=== PATIENT | female | born 1970 | race Caucasian/White ===

== ENCOUNTER 2020-01-16 09:12 | Outpatient (CLI) | payer OTHER, SELFPAY ==
[2020-01-16] MEDS: acetaminophen 500 mg Tablet 1000 MG PO (09:30)
[2020-01-16] MEDS: diphenhydrAMINE 50 mg/mL SDV 1mL 25 MG IVP (09:30)
== END 2020-01-16 09:13 | disposition home or self-care (01) ==
LOC: NSACUTE 09:13
PROVIDERS: Family Provider Internal Medicine; PCP Internal Medicine; Visit Provider Specialist
DX: G35 Multiple sclerosis (principal)
CPT/HCPCS: 36415; 96374; 96375; 96413; 96415; 99213; J1200; J2350; J2930; J7040

== ENCOUNTER 2020-04-24 08:27 | Outpatient (CLI) | payer OTHER, SELFPAY ==
--- NOTE | 2020-04-24 08:45 | US_ITS ---
WS: [id number] ULTRASOUND RENAL TECHNIQUE: Ultrasound examination of both kidneys. CLINICAL INFORMATION: Incontinence COMPARISON: Ultrasound June 05, 2015 FINDINGS: Technically difficult examination due to body habitus. RIGHT: Small simple cyst right upper pole measuring 1.1 x 0.8 x 0.8 cm Right kidney is normal in size and appearance. Echogenicity: Normal. Cortical thickness: 1.2 cm; Normal. Hydronephrosis: None. Perinephric fluid: None. Right kidney measures: 8.5 cm x 3.9 cm x 3.9 cm. LEFT: Left kidney is normal in size and appearance. Echogenicity: Normal. Cortical thickness: 1.5 cm; Normal. Hydronephrosis: None. Perinephric fluid: None. Left kidney measures: 9.7 cm x 4.0 cm x 5.2 cm. Normal visualized aorta. Small pocket of fluid in the pelvis adjacent to the bladder wall. This measu res 3.3 x 2.0 x 3.3 cm US/US renal BI* [id number] IMPRESSION: 1. Mild bilateral renal cortical atrophy. 2. No hydronephrosis in either kidney. 3. Small right renal cyst described above. 4. Normal bladder. 5. Small pocket of simple fluid in the pelvis adjacent to the bladder wall michael suring 3.3 CM.
== END 2020-04-24 08:28 | disposition home or self-care (01) ==
LOC: US 08:31
PROVIDERS: PCP Internal Medicine; Visit Provider Urology
DX: N39.41 Urge incontinence (principal); N26.1 Atrophy of kidney (terminal); N28.1 Cyst of kidney, acquired; R33.9 Retention of urine, unspecified
CPT/HCPCS: 76770; 80053; 81001; 87077; 87086; 87186

== ENCOUNTER 2020-07-30 08:37 | Outpatient (CLI) | payer OTHER, SELFPAY ==
[2020-07-30] MEDS: diphenhydrAMINE 50 mg/mL SDV 1mL 25 MG IVP (09:45)
[2020-07-30] MEDS: acetaminophen 500 mg Tablet 1000 MG PO (10:05)
== END 2020-07-30 08:38 | disposition home or self-care (01) ==
LOC: NSACUTE 08:38
PROVIDERS: Family Provider Internal Medicine; PCP Internal Medicine; Visit Provider Specialist
DX: G35 Multiple sclerosis (principal)
CPT/HCPCS: 96365; 96375; 99213; J1200; J2350; J2930; J7040

== ENCOUNTER 2021-01-16 08:00 | Outpatient (CLI) | payer OTHER, SELFPAY ==
[2021-01-16] MEDS: acetaminophen 500 mg Tablet 1000 MG PO (08:48)
[2021-01-16] MEDS: diphenhydrAMINE 50 mg/mL SDV 1mL 12.5 MG IVP (08:55)
--- NOTE | 2021-01-16 10:33 | PC.NURSE ---
Medication information Solumedrol [id number] 08/09/22 Benadryl [id number] 02/07/22 Ocrevus [id number] 08/09/21
== END 2021-01-16 08:01 | disposition home or self-care (01) ==
LOC: NSACUTE 08:13
PROVIDERS: PCP Internal Medicine; Visit Provider Specialist
DX: G35 Multiple sclerosis (principal); M54.5 Low back pain
CPT/HCPCS: 96365; 96366; 96375; 99214; J1200; J2350; J2930; J7040

== ENCOUNTER 2021-01-23 10:31 | Outpatient (CLI) | payer OTHER, SELFPAY ==
--- NOTE | 2021-01-23 10:33 | MM_ITS ---
WS: [id number] BILATERAL DIGITAL SCREENING MAMMOGRAPHY WITH CAD CLINICAL INFORMATION: SCREENING HISTORY: Screening mammogram. No current complaints. COMPARISON: TECHNIQUE: Bilateral CC and MLO views. FINDINGS: Scattered fibroglandular densities bilaterally. Punctate and lucent centered calcifications. Eggshell calcifications. Clustered and punctate calcifications posterior depth right breast upper outer quadr ant increased from previous 2019 Recommend spot magnification views for further evaluation. Additional incidental benign lucent center ed and x-ray calcifications right breast. Left breast is unchanged and unremarkable. MM/[place] [id number] IMPRESSION: BI-RADS: 0-Incomplete: Need additional imaging evaluation FOLLOW UP: Need Additional Imaging Recommend spot magnification views of the increasing calcifications posterior d epth right breast.
== END 2021-01-23 10:32 | disposition home or self-care (01) ==
LOC: RADSHAW 10:31
PROVIDERS: PCP Internal Medicine; Visit Provider Internal Medicine
DX: Z12.31 Encounter for screening mammogram for malignant neoplasm of breast (principal); R92.1 Mammographic calcification found on diagnostic imaging of breast
CPT/HCPCS: 77067

== ENCOUNTER 2021-01-25 10:25 | Outpatient (RCR) | payer OTHER, SELFPAY | END 2021-02-06 23:59 | disposition home or self-care (01) | LOC: SPT 10:25 | PROVIDERS: PCP Internal Medicine; Referring Provider Specialist; Visit Provider Specialist | DX: R26.81 Unsteadiness on feet (principal); G35 Multiple sclerosis | CPT/HCPCS: 87635; 97110; 97112; 97162 ==

== ENCOUNTER 2021-01-30 06:45 | Day surgery (SDC) | payer OTHER, SELFPAY ==
[2021-01-28 12:40] VITALS: BMI 32.5
--- NOTE | 2021-01-30 06:52 | ANES.PREANE2 ---
Pre-Anesthetic Assessment Pre-Anesthetic Assessment: Height/Weight: Height 1.63 m Weight 86.183 kg Preop Diagnosis: Screening colonoscopy Proposed Procedure: Operation Date: 01/30/21 08:00 Proposed Procedures p Colonoscopy 62348 Z12.11(Not Applicable) - Christofer Gimenez MD Familial anesthetic complications: None Was Beta Va taken within 24 hours: N/A Was Clonidine taken within 24 hours: N/A Last intake: NPO>8 hrs Social: Social History: No alcohol and No tobacco Exam: Pre-Anes Outpt Exam: alert, oriented x 3, clear to auscultation bilaterally and regular rate & rhythm Airway: Cervical ROM: WNL MP: 2 Dentition: Full CV/HEM: CV/HEM: HTN Musc/skel: Comments: multiple sclerosis Neuropsych: Neuropsych: Seizure (2018) Anesthetic Plan: ASA status: 3 Anesthesia: MAC Risk of > 500 ml blood loss (7ml/kg in children): No PFSH Anesthesia PFSH: Medical History Cystitis Hypertension Multiple sclerosis Urgency incontinence Family History Other Hypertension Denies family history of Diabetes Cancer Stroke Social History Smoking and tobacco status: never smoked Alcohol intake: current Alcohol intake frequency: 0-2 Drinks per Day Adopted: No Caregiver/support person: No Lives independently: No Household members: spouse Marital status: Current occupational status: employed History of recent travel: No Data Anesthesia Cardiac Studies: No Data to Display
[2021-01-30 07:34] VITALS: BP 96/61; PULSE 73; RESP 16; TEMP 36.3; O2SAT 98
--- NOTE | 2021-01-30 07:54 | W.PM.OPSUD ---
Surgery/Procedure H&P Update DATE OF PROCEDURE: January 30, 2021 DATE H&P PERFORMED: 01/07/21 H&P UPDATE INFORMATION: I have reviewed H&P completed within last 30 days, I have examined patient prior to procedure and No changes to prior documentation PREOP DIAGNOSIS: Screening colonoscopy PRIMARY INDICATION FOR PROCEDURE: The same PLANNED PROCEDURE: Operation Date: 01/30/21 08:00 Proposed Procedures p Colonoscopy 37456 Z12.11(Not Applicable) - Christofer Gimenez MD
[2021-01-30] MEDS: sodium chloride 0.9% 1,000 ML 30 ML IV (07:58)
[2021-01-30 08:58] VITALS: BP 73/38; PULSE 77; RESP 16; TEMP 36.1; O2SAT 98
[2021-01-30 09:20] VITALS: BP 93/56; PULSE 78; RESP 16; O2SAT 99
--- NOTE | 2021-01-30 09:33 | ANE.PACU2 ---
Inpatient post-anesthesia follow up: Airway intact: Yes Vital signs: Temperature 97 F Pulse Rate 78 Respiratory Rate 16 Blood Pressure 93/56 Pulse Oximetry 99 Oxygen Delivery Me thod Room Air Oxygen Flow Rate Fraction of Inspir ed Oxygen Hydration adequate: Yes Nausea and vomiting: No Mental status: Baseline
== END 2021-01-30 10:46 | disposition home or self-care (01) ==
PROVIDERS: PCP Internal Medicine; Visit Provider Surgery
PROC: 0DJD8ZZ Inspection of Lower Intestinal Tract, Via Natural or Artificial Opening Endoscopic (ICD-10-PCS; CPT 45378; principal; 2021-01-30 08:00)
DX: Z12.11 Encounter for screening for malignant neoplasm of colon (principal); I10 Essential (primary) hypertension; G35 Multiple sclerosis
CPT/HCPCS: 45378; 96360; J2704; J3490; J7030

== ENCOUNTER → 2021-02-04 08:36 | Outpatient (BNVA) | payer OTHER, SELFPAY | PROVIDERS: PCP Internal Medicine; Referring Provider Specialist; Visit Provider Anesthesiology Pain Medicine | DX: G89.29 Other chronic pain (principal); M54.5 Low back pain; Z78.9 Other specified health status; Z79.899 Other long term (current) drug therapy | CPT/HCPCS: 99205 ==

== ENCOUNTER 2021-02-05 07:53 | Outpatient (CLI) | payer OTHER, SELFPAY ==
--- NOTE | 2021-02-05 07:56 | MR_ITS ---
WS: [id number] MRI BRAIN WITH AND WITHOUT CONTRAST HISTORY: G35 - Multiple sclerosis COMPARISON: 07/15/2018 TECHNIQUE: Multiplanar imaging performed through the brain with MultiHance 19 ml's IV. No acute infarcts or hemorrhage. Multifocal areas of T2 mixed signal white matter lesions again seen at the vertex and extending around the ventricles and into the cerebellum in the distribution consist ent with multiple sclerosis. As compared to the most recent study there has not been a significant pr ogression of lesions. On the T1 sequences there are numerous areas of marked decreased signal from lo ng-standing demyelination. No ventriculomegaly. No susceptibility artifacts or prior lacunar infarcts. Ventricles and extra-axial spaces are normal. Clivus and pituitary gland are normal. Postcontrast images are negative for masses or vascular malformations. No enhancement of the demyelin ating lesions. Dural venous sinuses are normal. Paranasal sinuses: Well aerated with no significant disease. Mastoid air cells: Normal. Calvarium and scalp: Normal. MR/MR head wo/w con [id number] IMPRESSION: 1. Moderately severe changes of chronic demyelinating disease is stable since 07/15/2018. 2. No enhancing active demyelination.
--- NOTE | 2021-02-05 07:56 | MR_ITS ---
WS: [id number] MRI CERVICAL SPINE with and without contrast. HISTORY: G35 - Multiple sclerosis COMPARISON: None available. Technique: Multiplanar, multisequence noncontrast imaging of the cervical spine with and without cont rast. Mild straightening of the normal cervical lordosis. No cord atrophy or enlargement. No focal areas of decreased signal. Mild disc space narrowing and desiccation at C5-6. Posterior fossa is negative. Craniocervical junction, C1 and C2 relationship, odontoid process and soft tissues are normal. C2-C3: Minimal osteophytic ridging. No stenosis. C3-C4: Normal. C4-C5: Normal. C5-C6: Mild annular disc bulging and osteophytic ridging. Focal central to LEFT paracentral disc prot rusion with annular fissure has slightly increased since the prior study. No high-grade stenosis. C6-C7: Normal. C7-T1: Normal. On the T2 and STIR sequences multi focal areas of increased signal throughout the cervical cord begin aimee at the C2 level into the upper thoracic spine. Probably no significant progression of the white matter lesions. On the postcontrast sequence there is very minimal smudginess increased enhancement a t the C6-7 level extending over length of 1 cm. Consistent with an area of active demyelination. MR/MR cervical spine wo/w [id number] IMPRESSION: 1. No significant progression of demyelinating lesions which are multi focal t hroughout the cervical and upper thoracic cord. 2. Subtle enhancement in the cervical cord at the C5-6 level suggest active de myelination. 3. Mild increase in size of focal central to LEFT paracentral disc protrusion at C5-6 without cord compression.
== END 2021-02-05 07:54 | disposition home or self-care (01) ==
LOC: RADSHAW 07:55
PROVIDERS: PCP Internal Medicine; Visit Provider Specialist
DX: G35 Multiple sclerosis (principal); M50.222 Other cervical disc displacement at C5-C6 level
CPT/HCPCS: 70553; 72156

== ENCOUNTER 2021-02-07 06:00 | Outpatient (RCR) | payer OTHER, SELFPAY | END 2021-03-07 14:24 | disposition home or self-care (01) | LOC: SPT 06:00 | PROVIDERS: PCP Internal Medicine; Referring Provider Specialist; Visit Provider Specialist | DX: R26.81 Unsteadiness on feet (principal); G35 Multiple sclerosis | CPT/HCPCS: 97110; 97112 ==

== ENCOUNTER 2021-02-15 09:17 | Outpatient (CLI) | payer OTHER, SELFPAY ==
--- NOTE | 2021-02-15 09:22 | MM_ITS ---
WS: [id number] ADDITIONAL VIEWS RIGHT BREAST HISTORY: ABNORMAL MAMMOGRAM COMPARISON: 01/23/2021 and 12/07/2018 Magnification views right CC and MLO projection. True ML also submitted. Magnification views of the calcifications in the posterior superior RIGHT breast are very benign in a ppearance. These are coarse and round. Some of these may be vascular calcifications. As these are new 6 month follow-up will be recommended. MM/[place] [id number] IMPRESSION: BI-RADS: 3-Probably Benign FOLLOW-UP: 6 Month Follow-up 6 month follow-up of benign-appearing calcifications in the posterior superior RIGHT breast.
== END 2021-02-15 09:18 | disposition home or self-care (01) ==
LOC: RADSHAW 09:18
PROVIDERS: PCP Internal Medicine; Visit Provider Nurse Practitioner Family
DX: R92.8 Other abnormal and inconclusive findings on diagnostic imaging of breast (principal); R92.1 Mammographic calcification found on diagnostic imaging of breast
CPT/HCPCS: 77065

== ENCOUNTER 2021-07-08 08:34 | Outpatient (CLI) | payer OTHER, SELFPAY ==
[2021-07-08] MEDS: acetaminophen 500 mg Tablet 1000 MG PO (08:54)
[2021-07-08] MEDS: diphenhydrAMINE 50 mg/mL SDV 1mL 25 MG IVP (10:20)
== END 2021-07-08 08:35 | disposition home or self-care (01) ==
LOC: NSACUTE 08:35
PROVIDERS: PCP Internal Medicine; Visit Provider Specialist
DX: G35 Multiple sclerosis (principal)
CPT/HCPCS: 96365; 96366; 96375; 99214; J1200; J2350; J2930; J7040

== ENCOUNTER → 2021-07-23 13:20 | Outpatient (BNVA) | payer OTHER, SELFPAY | PROVIDERS: PCP Internal Medicine; Visit Provider Anesthesiology Pain Medicine | DX: M47.816 Spondylosis without myelopathy or radiculopathy, lumbar region (principal) | CPT/HCPCS: 64635; 64636; J1030 ==

== ENCOUNTER → 2021-08-06 08:59 | Outpatient (BNVA) | payer OTHER, SELFPAY | PROVIDERS: PCP Internal Medicine; Visit Provider Anesthesiology Pain Medicine | DX: M47.816 Spondylosis without myelopathy or radiculopathy, lumbar region (principal); M51.16 Intervertebral disc disorders with radiculopathy, lumbar region; Z78.9 Other specified health status | CPT/HCPCS: 99213 ==

== ENCOUNTER → 2021-08-13 14:12 | Outpatient (BNVA) | payer OTHER, SELFPAY | PROVIDERS: PCP Internal Medicine; Visit Provider Anesthesiology Pain Medicine | DX: M47.816 Spondylosis without myelopathy or radiculopathy, lumbar region (principal) | CPT/HCPCS: 64635; 64636; J1030 ==

== ENCOUNTER → 2021-08-27 09:50 | Outpatient (BNVA) | payer OTHER, SELFPAY | PROVIDERS: PCP Internal Medicine; Visit Provider Anesthesiology Pain Medicine | DX: M47.816 Spondylosis without myelopathy or radiculopathy, lumbar region (principal); M51.16 Intervertebral disc disorders with radiculopathy, lumbar region; Z78.9 Other specified health status | CPT/HCPCS: 99213; 99214 ==

== ENCOUNTER → 2021-09-23 09:55 | Outpatient (BNVA) | payer OTHER, SELFPAY | PROVIDERS: PCP Internal Medicine; Visit Provider Anesthesiology Pain Medicine | DX: M47.816 Spondylosis without myelopathy or radiculopathy, lumbar region (principal); M51.16 Intervertebral disc disorders with radiculopathy, lumbar region; Z78.9 Other specified health status | CPT/HCPCS: 99214 ==

== ENCOUNTER 2021-09-23 10:27 | Outpatient (CLI) | payer OTHER, SELFPAY ==
--- NOTE | 2021-09-23 10:29 | XR_ITS ---
WS: [id number] Exam: XR thoracic spine 3V* [id number] Date/Time of Exam: 09/23/2021 10:30 AM Reason For Exam: M54.6 - Pain in thoracic spine Comparison 01/28/2012. Findings: In the AP projection, the thoracic spine is straight. In the lateral projection, the thoracic curve is well maintained. The intervertebral disc spaces are intact. No fractures or anomalies of the tho racic spine are noted. XR/XR thoracic spine 3V* [id number] IMPRESSION: Negative thoracic spine.
== END 2021-09-23 10:28 | disposition home or self-care (01) ==
PROVIDERS: PCP Internal Medicine; Visit Provider Anesthesiology Pain Medicine
DX: M54.6 Pain in thoracic spine (principal)
CPT/HCPCS: 72072

== ENCOUNTER 2021-09-26 13:37 | Outpatient (CLI) | payer OTHER, SELFPAY ==
--- NOTE | 2021-09-26 13:43 | MM_ITS ---
WS: [id number] RIGHT DIGITAL MAMMOGRAPHY WITH CAD CLINICAL INFORMATION: ABNORMAL MAMMOGRAM RIGHT BREAST HISTORY: Six-month follow-up COMPARISON: February 15, 2021 TECHNIQUE: 5 views of the right breast were obtained. FINDINGS: Scattered fibroglandular densities of the right breast. Lucent centered calcifications. Punctate calc ifications. Coarse calcifications in the posterior superior right breast are stable in appearance com pared to the prior examinations. These have a benign appearance and recommend return to annual screen ing mammography. No other significant changes. MM/[place] [id number] IMPRESSION: BI-RADS: 2-Benign FOLLOW UP: 1 Year Follow-up Recommend return to annual screening mammography.
== END 2021-09-26 13:38 | disposition home or self-care (01) ==
LOC: RADSHAW 13:40
PROVIDERS: PCP Internal Medicine; Visit Provider Internal Medicine
DX: R92.8 Other abnormal and inconclusive findings on diagnostic imaging of breast (principal)
CPT/HCPCS: 77065

== ENCOUNTER → 2021-10-21 10:55 | Outpatient (BNVA) | payer OTHER, SELFPAY | PROVIDERS: PCP Internal Medicine; Visit Provider Anesthesiology Pain Medicine | DX: M47.816 Spondylosis without myelopathy or radiculopathy, lumbar region (principal); M51.16 Intervertebral disc disorders with radiculopathy, lumbar region; Z78.9 Other specified health status | CPT/HCPCS: 99214 ==

== ENCOUNTER 2021-11-20 03:12 | Observation (INO) | payer OTHER, SELFPAY ==
[2021-11-20] VITALS (33 sets, daily range): BP systolic 55–138; BP diastolic 33–90; PULSE 14–111; RESP 8–95; TEMP 36.3–36.8; O2SAT 74–100; BMI 31.7
--- NOTE | 2021-11-20 03:15 | W.ED.FALL ---
HPI - Fall General: Chief Complaint: Fall Stated Complaint: Injury Fell Head Time Seen by Provider: 11/20/21 03:14 History of Present Illness: HPI Narrative: Ms. Mo is a 51-year-old lady with history of MS, chronic pain who presents to the emergency department due to fall and head injury. Injury happened just prior to coming in. She reports having a leg cramp and being in bed. She got up and felt lightheaded. She fell forward striking her face. No loss of consciousness and no subsequent episodes of nausea or vomiting. There is no apparent confusion. She does have a approximately 2 cm laceration with mild active oozing, no reported arterial bleeding. Overall the intensity of symptoms was moderate to severe. Denies frequent history of similar. Denies associated chest pain, shortness of breath, or any other changes in health. Reports normal p.o. intake. No other specific exacerbating or relieving factors identified. On initial presentation the patient is noted to be hypotensive, etiology unclear. MD complaint: fall Onset (ago): minute(s) Fall from: standing Place fall occurred: home Loss of consciousness: Unsure Prolonged down time: no Symptoms prior to fall: lightheadedness Context: history of frequent falls Location of injury: head Associated symptoms-after fall: Reports no associated symptoms Review of Systems General: Reports: 10 or more systems reviewed and unremarkable except in HPI and below PFSH ED PFSH: Medical History (Updated 11/22/21 @ 00:01 by ) Atrophic kidney Chronic kidney disease Cystitis Encounter for screening colonoscopy Normal colonoscopy Hypertension Migraine headache Mitral regurgitation Multiple sclerosis Urgency incontinence Family History Other Hypertension Denies family history of Diabetes Cancer Stroke Social History (Updated 11/20/21 @ 09:13 by Mauro Gage MD) Alcohol intake: current Alcohol intake frequency: 0-2 Drinks per Day Adopted: No Caregiver/support person: No Lives independently: No Household members: spouse Marital status: Current occupational status: disabled History of recent travel: No Physical Exam Const: COMMON NORMALS: alert GENERAL APPEARANCE: cooperative and well developed HENMT: COMMON NORMALS: normocephalic HEAD & SCALP: normocephalic and laceration (2 cm l eyebrow) THROAT: posterior oropharynx normal Eye: COMMON NORMALS: conjunctivae normal CONJUNCTIVA: Yes conjunctivae normal SCLERA: sclerae normal Neck/C-Spine: COMMON NORMALS: supple GENERAL: Yes trachea midline Resp: COMMON NORMALS: normal respiratory effort EFFORT & INSPECTION: Yes able to speak in complete sentences Cardio: COMMON NORMALS: regular rate and regular rhythm RATE: regular rate RHYTHM: regular rhythm GI: COMMON NORMALS: Soft to palpation PALPATION: Yes Soft to palpation and No Tenderness to palpation present (GI) PERCUSSION: normal to percussion Extremity: GENERAL: Yes normal exam except as noted and No edema Neuro: COMMON NORMALS: moves all extremities SENSORIUM/ORIENTATION: Yes alert and No Orientation impaired Psych: COMMON NORMALS: mental status grossly normal and Normal thought process present THOUGHT PROCESS: Normal thought process present Procedures Laceration Laceration 1: Site: face Side (If applicable): left Size (cm): 3 Description: linear Depth: simple, single layer Pre-repair: irrigated extensively (cleaned extensively) Skin layer closed with: other (dermabond) Course ED course: - Patient was seen and evaluated by me at bedside - Patient placed on cardiac monitors, IV access obtained - Initial evaluation notable for exam as above, patient is hypotensive though mentating adequately. -IV fluids ordered - Labs notable for no leukocytosis, hemoglobin is decreased though recent previous is 2019. Metabolic panel with evidence of increased creatinine, known history of CKD, mildly decreased bicarb and increased anion gap. - Imaging notable for negative acute findings on chest x-ray, cardiomegaly present. - Patient remained hypotensive despite fluid resuscitation without active evidence of clear cause. - Lowest blood pressure noted to be 53/33, mentation continued the patient markedly symptomatic with position changes. - Negative FAST exam. - No history of GI bleed/changes in stool or recent changes in medication, she has been taking her medication as prescribed and never had similar. Blood pressure medications including lisinopril and propranolol, patient is not significantly bradycardic enough to indicate beta-ernesto toxicity. - Given persistence additional CT imaging warranted. No acute evidence of traumatic injury or internal bleeding. - Upon serial reexamination after treatment the patient was mildly improved symptomatically the patient continues to be hypotensive. - Based on patient history, evaluation, labs, and imaging as interpreted the most likely cause of the patient's condition is unspecified cause of hypotension likely resulting in fall with closed head injury and laceration which was repaired with glue at bedside - The results of ED evaluation were discussed with the patient including plan for admission due to requirement for level of care not available if discharged to prevent significant worsening/deterioration. - Hospitalist service contacted and agreed admit the patient. - Patient was admitted without further deterioration or significant events. Blood pressure slowly improving at time of admission. Note: Click bubbles or prepopulated callahan in note writing are used for assistance with data collection and billing and are inherently more limited than narrative and other text portions of this note. Please use narrative for additional clinical history and defer to narrative/free test for any case of contradictory information. If information appears in only free text or click bubble it should be considered present or absent as reported. Please contact note lead technical writer for clarifications of clinical information or contradictory information. MDM is a brief summary, contradictory or erroneous seeming information should be clarified and full note should be reviewed. Vital Signs: Vital signs: Vital Signs Temperature 97.2 F L 11/21/21 11:49 Pulse Rate 82 11/21/21 11:49 Respiratory Rate 14 11/21/21 11:49 Blood Pressure 125/87 11/21/21 11:49 Pulse Oximetry 96 11/21/21 11:49 MDM - Fall MDM Narrative: Medical decision making narrative: 51-year-old lady with history of MS and hypertension presenting with head injury after fall. Fall was syncopal with position change in nature and patient is noted to be markedly hypotensive. She denies any recent history that would be consistent with reasons for hypotension. No poor p.o. intake, no increased output or vomiting, no changes in medications. Looking back she has had occasional mild low blood pressure however certainly nothing this profound. Would be atypical for medication toxicity/beta-ernesto toxicity as the patient is not bradycardic. Would also be atypical for acute traumatic mechanism as a source though in the absence of any other apparent explanation must resort back to ensuring ABCs and will perform CT scans. CT scans negative. Blood pressure slowly improving though patient remains hypotensive out of proportion to obvious explanation. Patient requires admission for further inpatient evaluation and testing as well as improvement in blood pressure. Medical Records: Attestation: I reviewed the patient's medical records. Lab Data: Attestation: I reviewed the patient's lab results. Labs: Lab Results 11/20/21 11/20/21 11/20/21 03:28 03:28 03:28 WBC 6.6 10^3/uL 10^3/ uL (4.0-10.0) RBC 3.71 10^6/uL L 10 ^6/uL (4.1-5.3) Hgb 10.5 g/dL L g/dL (11.5-15.3) Hct 33.0 % L % (37.0-47.0) MCV 88.9 fl fl (81-99) MCH 28.3 pg pg (28.0-34.0) MCHC 31.8 g/dL g/dL (30.0-36.0) RDW 12.6 % % (12.1-15.1) Plt Count 346 10^3/cmm 10^3 /cmm (130-400) MPV 11.2 fL H fL (7.4-10.4) Neut % (Auto) 65.7 % % Lymph % (Auto) 14.4 % % Esmeralda % (Auto) 12.6 % % Eos % (Auto) 5.9 % % Baso % (Auto) 1.1 % % Neut # (Auto) 4.35 10^3/uL 10^3 /uL (1.8-7.7) Lymph # (Auto) 1.0 10^3/uL 10^3/ uL (0.8-4.8) Esmeralda # (Auto) 0.8 10^3/uL 10^3/ uL (0.2-0.9) Eos # (Auto) 0.4 10^3/uL 10^3/ uL (0.0-0.8) Baso # (Auto) 0.1 10^3/uL 10^3/ uL (0.0-0.1) Nucleated RBC % (a uto) 0 % % Nucleated RBCs # 0.0 /100WBC /100W BC Sodium 136 mmol/L mmol/L (136-145) Potassium 3.7 mmol/L mmol/L (3.5-5.1) Chloride 101 mmol/L mmol/L (98-107) Carbon Dioxide 21 mmol/L L mmol/ L (22-29) Anion Gap 17.7 (5-19) BUN 33 mg/dL H mg/dL (6-20) Creatinine 1.8 mg/dL H mg/dL (0.5-0.9) GFR Calculation 29.8 mL/min L mL/ min (90-130) Glucose 130 mg/dL H mg/dL (65-115) Estimat Average Gl ucose Hemoglobin A1c Calculated Osmolal ity 291 mOsm/kg mOsm/ kg (285-295) Lactate 1.3 mmol/L mmol/L (0.5-2.2) Calcium 8.7 mg/dL mg/dL (8.5-10.5) Magnesium Iron TIBC % Saturation Unsat Iron Binding Ferritin Total Bilirubin 0.2 mg/dL mg/dL (0.15-1.2) AST 16 U/L U/L (0-32) ALT 16 U/L U/L (0-33) Alkaline Phosphata se 99 IU/L IU/L (35-105) Creatine Kinase Troponin T Baselin e Troponin T 120 Min [place] Troponin T Total Protein 5.8 g/dL L g/dL (6.6-8.7) Albumin 3.7 g/dL g/dL (3.5-5.2) Globulin 2.1 g/dL g/dL (1.3-4.6) Vitamin B12 Folate TSH 4.92 uIU/mL H uIU /mL (0.27-4.20) Free T4 Random Cortisol Urine Color Urine Appearance Urine pH Ur Specific Gravit y Urine Protein Urine Glucose (UA) Urine Ketones Urine Blood Urine Nitrate Urine Bilirubin Urine Urobilinogen Ur Leukocyte Fartun ase Urine RBC Urine WBC Ur Squamous Epith Cells Amorphous Sediment Urine Bacteria 11/20/21 11/20/21 11/20/21 03:28 03:28 03:28 WBC RBC Hgb Hct MCV MCH MCHC RDW Plt Count MPV Neut % (Auto) Lymph % (Auto) Esmeralda % (Auto) Eos % (Auto) Baso % (Auto) Neut # (Auto) Lymph # (Auto) Esmeralda # (Auto) Eos # (Auto) Baso # (Auto) Nucleated RBC % (a uto) Nucleated RBCs # Sodium Potassium Chloride Carbon Dioxide Anion Gap BUN Creatinine GFR Calculation Glucose Estimat Average Gl ucose 91 Hemoglobin A1c 4.8 % % (4.0-6.0) Calculated Osmolal ity Lactate Calcium Magnesium Iron TIBC % Saturation Unsat Iron Binding Ferritin Total Bilirubin AST ALT Alkaline Phosphata se Creatine Kinase Troponin T Baselin e 20 ng/L H ng/L (0-10) Troponin T 120 Min [place] Troponin T Total Protein Albumin Globulin Vitamin B12 Folate TSH Free T4 1.41 ng/dL ng/dL (0.82-1.77) Random Cortisol Urine Color Urine Appearance Urine pH Ur Specific Gravit y Urine Protein Urine Glucose (UA) Urine Ketones Urine Blood Urine Nitrate Urine Bilirubin Urine Urobilinogen Ur Leukocyte Fartun ase Urine RBC Urine WBC Ur Squamous Epith Cells Amorphous Sediment Urine Bacteria 11/20/21 11/20/21 11/20/21 03:28 03:28 03:28 WBC RBC Hgb Hct MCV MCH MCHC RDW Plt Count MPV Neut % (Auto) Lymph % (Auto) Esmeralda % (Auto) Eos % (Auto) Baso % (Auto) Neut # (Auto) Lymph # (Auto) Esmeralda # (Auto) Eos # (Auto) Baso # (Auto) Nucleated RBC % (a uto) Nucleated RBCs # Sodium Potassium Chloride Carbon Dioxide Anion Gap BUN Creatinine GFR Calculation Glucose Estimat Average Gl ucose Hemoglobin A1c Calculated Osmolal ity Lactate Calcium Magnesium 1.6 mg/dL L mg/dL (1.7-2.3) Iron 42 ug/dL ug/dL (37-145) TIBC 289 mcg/dl mcg/dl % Saturation 14.5 % L % (20-50) Unsat Iron Binding 247 ug/dL ug/dL (112-347) Ferritin 156 ng/mL H ng/mL (15-150) Total Bilirubin AST ALT Alkaline Phosphata se Creatine Kinase Troponin T Baselin e Troponin T 120 Min [place] Troponin T Total Protein Albumin Globulin Vitamin B12 279 pg/mL pg/mL (232-1245) Folate 4.9 ng/mL ng/mL (4.8-37.3) TSH Free T4 Random Cortisol 24.08 ug/dL H ug/ dL (2.47-19.5) Urine Color Urine Appearance Urine pH Ur Specific Gravit y Urine Protein Urine Glucose (UA) Urine Ketones Urine Blood Urine Nitrate Urine Bilirubin Urine Urobilinogen Ur Leukocyte Fartun ase Urine RBC Urine WBC Ur Squamous Epith Cells Amorphous Sediment Urine Bacteria 11/20/21 11/20/21 11/20/21 05:24 05:26 05:27 WBC RBC Hgb Hct MCV MCH MCHC RDW Plt Count MPV Neut % (Auto) Lymph % (Auto) Esmeralda % (Auto) Eos % (Auto) Baso % (Auto) Neut # (Auto) Lymph # (Auto) Esmeralda # (Auto) Eos # (Auto) Baso # (Auto) Nucleated RBC % (a uto) Nucleated RBCs # Sodium Potassium Chloride Carbon Dioxide Anion Gap BUN Creatinine GFR Calculation Glucose Estimat Average Gl ucose Hemoglobin A1c Calculated Osmolal ity Lactate Calcium Magnesium Iron TIBC % Saturation Unsat Iron Binding Ferritin Total Bilirubin AST ALT Alkaline Phosphata se Creatine Kinase 46 U/L U/L (26-192) Troponin T Baselin e Troponin T 120 Min [place] 16.57 ng/L H ng/L (0-10) Delta Troponin T -3.43 ABS# L ABS# (0-10) Total Protein Albumin Globulin Vitamin B12 Folate TSH Free T4 Random Cortisol Urine Color Yellow (Yellow) Urine Appearance Cloudy (CLEAR) Urine pH 5 (5-7) Ur Specific Gravit y 1.020 (1.005-1.030) Urine Protein Neg (Negative) Urine Glucose (UA) Norm (Normal) Urine Ketones 1+ H (Negative) Urine Blood Neg (Negative) Urine Nitrate Negative (Negative) Urine Bilirubin 1+ H (Negative) Urine Urobilinogen 1 mg/dL H mg/dL (Negative) Ur Leukocyte Fartun ase 2+ H (Negative) Urine RBC 0-4 /hpf H /hpf (0-2) Urine WBC 25-40 /hpf H /hpf (0-5) Ur Squamous Epith Cells 25-40 /hpf H /hpf (0-5) Amorphous Sediment Not Reportable Urine Bacteria 1+ /hpf H /hpf (NONE) Critical Care Time Critical Care Time: Critical Care Time: Yes Total Critical Care Time: 35 Attestation: Due to a high probability of clinically significant, possibly life threatening deterioration, the patient required my highest level of attention and preparedness to intervene emergently and I personally spent this critical care time directly and personally managing the patient. This critical care time included obtaining a history; examining the patient; pulse oximetry; ordering and review of laboratory and imaging studies; arranging urgent treatment with development of a management plan; evaluation of patient's response to treatment; frequent reassessment; and, discussions with other providers as applicable. It was exclusive of separately billable procedures. Discharge Plan Discharge Patient Disposition: Placed in Observation Admit Provider: Tanika Moncada Clinical Impression: Syncope, Hypotension Discharge Diet: Regular Discharge Activity: Increase activity as tolerated Coding Level of Care Code ED Commodities Requirements Analyst for Raymon Abarca
--- NOTE | 2021-11-20 03:27 | ECG_ITS ---
[facility] Test Date: 2021-11-20 Pat Name: Maribeth Mo Department: Room: Gender: Female Composite Layup Worker: : 1970 Requested By: Hi Cason Order Number: [id number] Uriah MD: Rudy Baker M.D. Measurements Intervals [place] Rate: 68 P: 32 NE: 135 QRS: 19 QRSD: 88 T: 17 QT: 382 QTc: 407 Interpretive Statements SINUS RHYTHM No previous ECG available for comparison Electronically Signed On 11-20-2021 20:07:46 COMPOSITE LAYUP WORKER by Rudy Baker M.D. [id number]
--- NOTE | 2021-11-20 03:31 | XRR_ITS ---
PROCEDURE INFORMATION: Exam: XR Chest Exam date and time: 11/20/2021 3:31 AM Age: 51 years old Clinical indication: Patient HX: Syncope. Hypotensive on monitor. TECHNIQUE: Imaging protocol: XR of the chest. Views: 1 view. COMPARISON: CR Chest 2 views* [id number] 06/01/2016 7:11 PM FINDINGS: Lungs: Shallow lung volumes. No consolidation. Pleural spaces: No pneumothorax or apparent pleural fluid. Heart/Mediastinum: Continued cardiomegaly. Vasculature: Continued aortic elongation. Bones/joints: No suggestion of acute bony disease. XR/XR chest 1V portable [id number] IMPRESSION: No acute findings. Continued cardiomegaly.
[2021-11-20 03:34] LABS: Basophils # 0.1 10^3/uL (0.0-0.1); Basophils % 1.1 %; Eosinophils # 0.4 10^3/uL (0.0-0.8); Eosinophils % 5.9 %; Hemoglobin 10.5 g/dL (11.5-15.3); Lymphocytes % 14.4 %; Mean Corpuscular HGB Conc 31.8 g/dL (30.0-36.0); Mean Corpuscular Hemoglobin 28.3 pg (28.0-34.0); Mean Corpuscular Volume 88.9 fl (81-99); Mean Platelet Volume 11.2 fL (7.4-10.4); Monocytes # 0.8 10^3/uL (0.2-0.9); Monocytes % 12.6 %; Neutrophils # 4.35 10^3/uL (1.8-7.7); Neutrophils % 65.7 %; Nucleated Red Blood Cells % 0 %; Platelet Count 346 10^3/cmm (130-400); Red Blood Count 3.71 10^6/uL (4.1-5.3); Red Cell Distribution Width 12.6 % (12.1-15.1); White Blood Count 6.6 10^3/uL (4.0-10.0)
[2021-11-20] MEDS: sodium chloride 0.9% 1,000 ML 999 ML IV ×2 (03:37→04:02)
[2021-11-20] MEDS: tetanus-dipt-pertussis 0.5 mL SDV IM (03:41)
[2021-11-20 04:01] LABS: Alanine Aminotransferase 16 U/L (0-33); Albumin Level 3.7 g/dL (3.5-5.2); Alkaline Phosphatase 99 IU/L (35-105); Anion Gap 17.7 (5-19); Aspartate Amino Transferase 16 U/L (0-32); Blood Urea Nitrogen 33 mg/dL (6-20); Calcium 8.7 mg/dL (8.5-10.5); Carbon Dioxide 21 mmol/L (22-29); Chloride 101 mmol/L (98-107); Globulin 2.1 g/dL (1.3-4.6); Glomerular Filtration Rate 29.8 mL/min (90-130); Glucose 130 mg/dL (65-115); Osmolality Calculated 291 mOsm/kg (285-295); Potassium 3.7 mmol/L (3.5-5.1); Sodium 136 mmol/L (136-145); Thyroid Stimulating Hormone 4.92 uIU/mL (0.27-4.20); Total Bilirubin 0.2 mg/dL (0.15-1.2); Total Protein 5.8 g/dL (6.6-8.7)
[2021-11-20] MEDS: hydrocortisone 100 mg/2 mL SDV IVP (04:09)
--- NOTE | 2021-11-20 04:26 | PC.NURSE ---
pt unable to urinate
[2021-11-20 04:38] LABS: Troponin(5th) Baseline 20 ng/L (0-10)
--- NOTE | 2021-11-20 04:38 | CTR_ITS ---
PROCEDURE INFORMATION: Exam: CT Cervical Spine Without Contrast Exam date and time: 11/20/2021 4:38 AM Age: 51 years old Clinical indication: Injury or trauma; Fall; Blunt trauma; Patient HX: Patient had syncopal episode this morning getting out of bed and fell and sustained blow to head. Small laceration to left eyebrow. ; Additional info: Syncope, fall, persistent hypotension TECHNIQUE: Imaging protocol: Computed tomography images of the cervical spine without contrast. Radiation optimization: All CT scans at this facility use at least one of these dose optimization techniques: automated exposure control; mA and/or kV adjustment per patient size (includes targeted exams where dose is matched to clinical indication); or iterative reconstruction. COMPARISON: MR cervical spine wo/w [id number] 02/05/2021 8:15 AM RADIATION DOSE METRICS: Total DLP (mGy-cm): 520.79 FINDINGS: Bones/joints: Still no fracture or malalignment. Discs/Spinal canal/Neural foramina: Current annular bulging rather than a left central focal disc protrusion at C5-C6. Still no significant canal stenosis. Lungs: Right lung apex mostly excluded, but unremarkable. Left lung apex not visualized Soft tissues: No acute finding. CT/CT cervical spin wo con* [id number] IMPRESSION: No fracture.
--- NOTE | 2021-11-20 04:38 | CTR_ITS ---
PROCEDURE INFORMATION: Exam: CT Head Without Contrast Exam date and time: 11/20/2021 4:38 AM Age: 51 years old Clinical indication: Injury or trauma; Fall; Blunt trauma (contusions or hematomas); Patient HX: Patient had syncopal episode this morning getting out of bed and fell and sustained blow to head. Small laceration to left eyebrow. ; Additional info: Syncope, fall, persistent hypotension TECHNIQUE: Imaging protocol: Computed tomography of the head without contrast. Radiation optimization: All CT scans at this facility use at least one of these dose optimization techniques: automated exposure control; mA and/or kV adjustment per patient size (includes targeted exams where dose is matched to clinical indication); or iterative reconstruction. COMPARISON: MR head wo/w con [id number] 02/05/2021 8:15 AM RADIATION DOSE METRICS: Total DLP (mGy-cm): 816.89 FINDINGS: Brain: Numerous foci of decreased density in the cerebral white matter bilaterally not associated with positive mass effect. Extensive patchy slightly decreased density also evident in the cerebral white matter. Old lacunar infarct or a perivascular space in the inferior left basal ganglia. No apparent edema in the brain. No intracranial hemorrhage. Cerebral ventricles: Continued slight ventriculomegaly. Paranasal sinuses: No air-fluid levels or significant mucosal thickening in the visualized paranasal sinuses. Mastoid air cells: Unremarkable mastoids. Bones/joints: No skull fracture. Soft tissues: No acute finding. CT/CT head wo con* [id number] IMPRESSION: No acute intracranial findings. Extensive chronic ischemic changes as on the prior MRI.
--- NOTE | 2021-11-20 04:38 | CTR_ITS ---
PROCEDURE INFORMATION: Exam: CTA Chest With Contrast Exam date and time: 11/20/2021 4:38 AM Age: 51 years old Clinical indication: Other: Hypotensive. ; Patient HX: Patient had syncopal episode with fall this morning. Patient has consistently been hypotensive 60s/40s on monitor after two liters of saline. Mildy decreased hemoglobin. ; Additional info: Syncope, fall, persistent hypotension TECHNIQUE: Imaging protocol: Computed tomographic angiography of the chest with contrast. 3D rendering (Not supervised by radiologist): MIP and/or 3D reconstructed images were created by the technologist. Total images: 1111 Radiation optimization: All CT scans at this facility use at least one of these dose optimization techniques: automated exposure control; mA and/or kV adjustment per patient size (includes targeted exams where dose is matched to clinical indication); or iterative reconstruction. Contrast material: VISI 320; Contrast volume: 95 ml; Contrast route: INTRAVENOUS (IV); COMPARISON: CR (CHEST, ) 11/20/2021 3:34 AM RADIATION DOSE METRICS: Total DLP (mGy-cm): 1377.06 FINDINGS: Pulmonary arteries: Pulmonary artery evaluation of good technical quality with no pulmonary artery embolism identified. Aorta: Unremarkable. No aortic aneurysm. No aortic dissection. Lungs: Unremarkable. No consolidation. No masses. Pleural spaces: Unremarkable. No pneumothorax. No pleural effusion. Heart: Unremarkable. No cardiomegaly. No pericardial effusion. Lymph nodes: Unremarkable. No enlarged lymph nodes. Bones/joints: Unremarkable. No acute fracture. Soft tissues: Unremarkable. PROCEDURE INFORMATION: Exam: CT Abdomen And Pelvis With Contrast Exam date and time: 11/20/2021 4:38 AM Age: 51 years old Clinical indication: Other: Hypotensive. ; Patient HX: Patient had syncopal episode with fall this morning. Patient has consistently been hypotensive 60s/40s on monitor after two liters of saline. Mildy decreased hemoglobin. ; Additional info: Syncope, fall, persistent hypotension TECHNIQUE: Imaging protocol: Computed tomography of the abdomen and pelvis with contrast. Radiation optimization: All CT scans at this facility use at least one of these dose optimization techniques: automated exposure control; mA and/or kV adjustment per patient size (includes targeted exams where dose is matched to clinical indication); or iterative reconstruction. Contrast material: VISI 320; Contrast volume: 95 ml; Contrast route: INTRAVENOUS (IV); COMPARISON: CR (CHEST, ) 11/20/2021 3:34 AM RADIATION DOSE METRICS: Total DLP (mGy-cm): 1377.06 FINDINGS: Liver: Normal. No mass. Gallbladder and bile ducts: The gallbladder is contracted but otherwise unremarkable. Pancreas: Normal. No ductal dilation. Spleen: Normal. No splenomegaly. Adrenal glands: Normal. No mass. Kidneys and ureters: Atrophic right kidney. Stomach and bowel: Colonic diverticulosis is present without diverticulitis. Appendix: No evidence of appendicitis. Intraperitoneal space: Unremarkable. No free air. No significant fluid collection. Vasculature: Incidental phleboliths noted. Lymph nodes: Unremarkable. No enlarged lymph nodes. Urinary bladder: Unremarkable as visualized. Reproductive: 3.5 cm simple appearing left ovarian cyst. No further workup needed. Bones/joints: Disc degeneration is most notable at L5/S1. Soft tissues: Unremarkable. CT/CT angio chest w abd pel w con IMPRESSION: 1. No pulmonary artery embolism identified. 2. No acute process identified. IMPRESSION: No acute findings.
[2021-11-20 04:39] LABS: Lactate (Lactic Acid level) 1.3 mmol/L (0.5-2.2)
[2021-11-20] MEDS: iodixanol 320 mg/mL 100mL Btl IV (04:54)
[2021-11-20 05:04] LABS: Free T4 Free Thyroxine 1.41 ng/dL (0.82-1.77)
[2021-11-20] MEDS: ondansetron 2 mg/ML SDV 2 mL 4 MG IVP (05:19)
[2021-11-20 05:38] LABS: Add Urine Microscopic? YES; Bacteria Urine 1+ /hpf; Bilirubin Urine 1+ (Negative); Blood Urine Neg (Negative); Glucose Urine UA Norm (Normal); Ketones Urine 1+ (Negative); Leukocyte Esterase Urine 2+ (Negative); Nitrate Urine Negative (Negative); Protein Urine Neg (Negative); RBC Urine 0-4 /hpf (0-2); Squamous Epithelial Cell Urine 25-40 /hpf (0-5); Urine Appearance Cloudy (CLEAR); Urine Color Yellow (Yellow); Urobilinogen Urine 1 mg/dL (Negative); WBC Urine 25-40 /hpf (0-5); pH Urine 5 (5-7)
[2021-11-20 05:56] LABS: Troponin 5 2HR 16.57 ng/L (0-10)
[2021-11-20 05:58] LABS: Troponin 5 2HR Delta -3.43 ABS# (0-10)
--- NOTE | 2021-11-20 06:09 | ECG_ITS ---
[facility] Test Date: 2021-11-20 Pat Name: Maribeth Mo Department: Room: Gender: Female Crate Tier: : 1970 Requested By: Hi Cason Order Number: [id number] Uriah MD: Rudy Baker M.D. Measurements Intervals [place] Rate: 73 P: 45 IN: 139 QRS: 44 QRSD: 90 T: 24 QT: 402 QTc: 443 Interpretive Statements SINUS RHYTHM LOW QRS VOLTAGE IN PRECORDIAL LEADS [QRS DEFLECTION < 1.0 mV IN CHEST LEADS] Compared to ECG 11/20/2021 03:32:07 Low QRS voltage now present Electronically Signed On 11-20-2021 20:07:50 CART ATTENDANT by Rudy Baker M.D. [id number]
--- NOTE | 2021-11-20 08:22 | USCV_ITS ---
Maribeth Mo Age: 51 Gender: F : 1970 Exam Date: 11/20/2021 10:41 Ordering Phys: Mauro Gage MD Technologist: DAVID [place] [facility] [place]: Syncope yesterday, fell and struck forehead. c/o hypotension. Has been taking blood pressure medication for years. No hx cardiac intervention BP: 96 / 55 HR: 75 Rhythm: Sinus Technical Quality: Adequate MEASUREMENTS (Male / Female) Normal Values 2D ECHO LV Diastolic Diameter PLAX 3.7 cm 4.2 - 5.9 / 3.9 - 5.3 cm LV Systolic Diameter PLAX 2.4 cm IVS Diastolic Thickness 1.1 cm 0.6 - 1.0 / 0.6 - 0.9 cm IVS Systolic Thickness 1.8 cm LVPW Diastolic Thickness 1.3 cm 0.6 - 1.0 / 0.6 - 0.9 cm LVPW Systolic Thickness 1.4 cm LVOT Diameter 1.8 cm LV Ejection Fraction 2D Teich 66.1 % LV Ejection Fraction MOD 2C 71.6 % LV Ejection Fraction 2C AL 73.8 % LA Diameter 3.6 cm LA Width 3.3 cm LA Height 5.2 cm RA Width 2.2 cm RA Height 3.9 cm Aorta at Sinotubular Diameter 2.5 cm M-MODE Aortic Annulus Diameter 2.7 cm LA Ao Ratio MM 1.5 MV E Point Septal Separation 0.4 cm DOPPLER AV Peak Velocity 115.0 cm/s LVOT Peak Velocity 78.0 cm/s AV Area Cont Eq vti 1.9 cm squared AV Area Cont Eq pk 1.8 cm squared MV Peak Velocity 130.0 cm/s MV Area PHT 3.2 cm squared Mitral E to A Ratio 0.7 MV E' Velocity 54.0 cm/s Mitral E to MV E' Ratio 8.8 Mitral E to LV E' Lateral Ratio 8.1 Mitral E to LV E' Septal Ratio 9.5 TR Peak Velocity 215.5 cm/s TR Peak Gradient 18.6 mmHg TV Peak E Velocity 68.0 cm/s Right Atrial Pressure 5.0 mmHg Pulmonary Artery Systolic Pressu 23.6 mmHg PV Peak Velocity 85.0 cm/s RV Acceleration Time 0.1 s RV Ejection Time 0.4 s RV AcT/ET 0.3 FINDINGS Left Ventricle Normal left ventricular cavity size. Normal left ventricular systolic function. No regional wall motion abnormalities. Left ventricular ejection fraction is estimated at 66 %. Grade I/IV diastolic dysfunction (abnormal relaxation filling pattern), normal to mildly elevated filling pressures. Right Ventricle The right ventricle is normal in size and function. RVSP could not be calculated due to incomplete tricuspid regurgitation velocity profile. Right Atrium The right atrium is normal in size. Left Atrium The left atrium is normal in size. Mitral Valve Moderately thickened mitral valve. No mitral valve stenosis. Mild-moderate mitral valve regurgitation. Aortic Valve Structurally normal aortic valve without significant sclerosis or stenosis. There is no aortic regurgitation. Tricuspid Valve Mild tricuspid valve regurgitation. Pulmonic Valve Structurally normal pulmonic valve without significant stenosis. There is no pulmonic regurgitation. Pericardium Normal pericardium without effusion. Aorta Normal ascending aorta dimension. CONCLUSIONS 1-Normal left ventricular cavity size. Normal left ventricular systolic function. No regional wall motion abnormalities. Left ventricular ejection fraction is estimated at 66 %. Grade I/IV diastolic dysfunction (abnormal relaxation filling pattern), normal to mildly elevated filling pressures. 2-Moderately thickened mitral valve. No mitral valve stenosis. Mild-moderate mitral valve regurgitation. 3-Structurally normal aortic valve without significant sclerosis or stenosis. There is no aortic regurgitation. 4-There is no pericardial effusion. 5-Right atrial pressure is around 5 mm of mercury. 6-When compared to the prior echocardiogram dated June 30, 2016 mitral valve regurgitation has slightly improved from severe to moderate category. Latricia Baltazar MD (Electronically Signed) Final Date: 20 November 2021 22:06 S
--- NOTE | 2021-11-20 08:35 | PM.HP ---
Providers/Chief Complaint Admitting Physician: Tanika Moncada MD Primary Care Provider: Irasema Dalton MD Chief Complaint: Injury Fell Head History of Present Illness Maribeth Mo is a 51 year old female who presented to the ER after falling yesterday. PMH is significant for multiple sclerosis. She got out of bed to walk off a leg cramp and subsequently fell. She is unsure if she lost consciousness, but her states that she was awake and conscious when he ran to check on her after hearing her fall. She states that for the past several months, she felt dizzy every time she got up and would have to take a few seconds to feel better before moving. Today she endorses feeling tired and weak. She denies any recent illness. Her MS symptoms typically include weakness and urinary frequency but she is still able to control her urine. She experiences almost daily headaches for which she takes propranolol but feels it is ineffective. She has received 2 doses of COVID vaccine and denies having COVID in the past. She has not had any fever, cough, vomiting, diarrhea. She reports she has had no significant decreased intake of fluids. She reports she did eat less last night, 1 bowl of macaroni. Review of Systems General: Reports: 10 or more systems reviewed and unremarkable except in HPI and below Const: Denies: fever(s) or chills Eyes: Denies: change in vision ENMT: Denies: throat pain Card: Denies: chest pain Resp: Denies: dyspnea GI: Denies: abdominal pain : Reports: urinary frequency Musc: Denies: neck pain Skin/Breast: Denies: rash Neuro: Reports: headache(s) Psych: Denies: anxiety Endo: Denies: polydipsia Ayad/Lymph: Denies: easy bruising All/Imm: Denies: urticaria Medications/Allergies Home Medications Medication Instructions Recorded Confirmed Last Taken Type aspirin 325 mg tablet 325 mg PO DAILY 01/16/20 10/21/21 Unknown History levocetirizine 5 mg tablet 5 mg PO DAILY 01/16/20 10/21/21 Unknown History lisinopril 10 mg tablet 10 mg PO DAILY 01/16/20 10/21/21 Unknown History propranolol 60 mg tablet 60 mg PO DAILY tab 01/16/20 10/21/21 Unknown History diclofenac potassium 50 mg tablet 50 mg PO Q8H tab 04/24/20 10/21/21 Unknown History tizanidine 4 mg capsule 4 mg PO TID PRN 01/16/21 10/21/21 Unknown History melatonin 10 mg PO DAILY 01/28/21 10/21/21 Unknown History ocrelizumab 30 mg/mL intravenous mg IV .Q 6 MONTHS ml 02/04/21 10/21/21 Unknown History solution eletriptan 20 mg tablet 20 mg PO Q2H PRN #9 tab 02/11/21 10/21/21 Unknown Rx oxybutynin chloride 10 mg 10 mg PO DAILY #30 tab 06/11/21 10/21/21 Unknown Rx tablet,extended release 24 hr triamcinolone acetonide 0.1 % 1 applic TOPICAL BID 7 Days #30 g 07/04/21 10/21/21 Unknown Rx topical cream DME: Walker #1 ea 07/10/21 10/21/21 Unknown Rx lorazepam 0.5 mg tablet 0.5 mg PO DAILY PRN #1 tab 08/06/21 10/21/21 Unknown Rx amoxicillin 875 mg-potassium 1 tab PO BID 7 Days #14 tab 10/08/21 10/21/21 Unknown Rx clavulanate 125 mg tablet ergocalciferol (vitamin D2) 1,250 See Rx Instructions .ROUTE 10/23/21 Unknown Rx mcg (50,000 unit) capsule .COMPLEX #8 cap Allergies Allergy/AdvReac Type Severity Reaction Status Date / Time latex Allergy RASH Verified 10/21/21 11:35 citalopram [From Celexa] AdvReac Mild TEETH Verified 10/21/21 11:35 GRITTING tramadol AdvReac SEIZURES Verified 10/21/21 11:35 PFSH Acute PFSH: Medical History (Updated 11/20/21 @ 09:18 by Mauro Gage MD) Atrophic kidney Chronic kidney disease Cystitis Encounter for screening colonoscopy Normal colonoscopy Hypertension Migraine headache Mitral regurgitation Multiple sclerosis Urgency incontinence Family History Other Hypertension Denies family history of Diabetes Cancer Stroke Social History (Updated 11/20/21 @ 09:13 by Mauro Gage MD) Alcohol intake: current Alcohol intake frequency: 0-2 Drinks per Day Adopted: No Caregiver/support person: No Lives independently: No Household members: spouse Marital status: Current occupational status: disabled History of recent travel: No Other [facility] information: Denies any significant surgical history Vitals/I&O/Wt Last Vital Signs Temp 97.6 F 11/20/21 03:27 Pulse 62 11/20/21 06:22 Resp 18 11/20/21 06:22 BP 88/60 11/20/21 06:22 Pulse Ox 97 11/20/21 06:22 11/19/21 11/20/21 11/20/21 22:59 06:59 14:59 Intake Total 549.45 / 549.45 Balance 549.45 / 549.45 Weight last 48 hrs Weight 83.915 kg Physical Exam Narrative: EXAM NARRATIVE: General exam is a white female, in no apparent distress HEENT: Laceration site noted above left thigh, and eyebrow area, with what appears to be glue. Oropharynx clear Neck is supple no lymphadenopathy or thyromegaly Cardiovascular regular rate and rhythm, no murmur. No S3 or S4 Lungs clear no wheezing or crackles Abdomen is soft with positive bowel sounds. No obvious organomegaly exam is deferred Extremities no cyanosis clubbing or edema, cap refill brisk Skin no rash Neuro no obvious focal deficits. Data : 11/20/21 03:28 11/20/21 03:28 Micro: Microbiology 11/20/21 06:09 Blood Culture - Preliminary Blood SPECIMEN COLLECTED 11/20/21 04:20 Blood Culture - Preliminary Blood SPECIMEN COLLECTED Other data: Lactate 1.3, calcium 8.7, LFTs normal, troponin 20 with repeat 16. TSH 4.92 with free T4 1.41 Urinalysis with 25-40 white blood cells but also 25-[address] squamous epithelial cells. Head CT chronic ischemic changes. CT cervical spine no fracture. CT chest abdomen pelvis no pulmonary embolism or acute process Chest x-ray no acute infiltrate, cardiomegaly noted Blood cultures and urine cultures have been obtained EKG demonstrates sinus rhythm, normal axis, normal EKG A&P Assessment and plan (1) Fall: This may represent syncope. Certainly the patient had significant hypotension in the emergency department. Because of fall, and hypotension is being evaluated. This could represent autonomic dysfunction secondary to MS. This could represent acute kidney injury, in the face of antihypertensives propranolol as well as lisinopril. Although possible, I think it is not likely that infection is driving this process. A urine and blood culture were done. Telemetry Status: Acute (2) Hypotension: Blood pressure is better with fluids in the emergency department. Check cortisol level Orthostatic blood pressures twice a day Continue fluids Hold lisinopril and propranolol Check echocardiogram, for follow-up of mitral regurgitation as well Status: Acute (3) Anemia: Anemia panel, stool Hemoccult Recheck CBC tomorrow Status: Acute (4) Acute kidney injury: Continue hydration Bladder scan to rule out urinary retention Note that she has history of atrophic kidney Patient was instructed not to use any anti-inflammatories Avoid renal toxic medication Secondary to hypotension, also discontinue propranolol and lisinopril Check CPK, magnesium level Status: Acute (5) Hyperglycemia: Check hemoglobin A1c Status: Acute (6) Mitral regurgitation: Await echocardiogram Status: Acute (7) Multiple sclerosis: No evidence of exacerbation currently. Status: Acute Additional A&P Information Full code Heparin for DVT prophylaxis Attestations Medical Necessity Statement*: Will need less than 2 midnight stay for evaluation of fall, likely syncope, hypotension. Time Spent in Patient Care: Greater than 35 minutes Coding Level of Care Code Acute Commodity Specialist for Chg Fwd Diagnoses Fall W19.XXXA Hypotension I95.9 Anemia D64.9 Acute kidney injury N17.9 Hyperglycemia R73.9 Mitral regurgitation I34.0 Multiple sclerosis G35
[2021-11-20 09:25] LABS: Estmated Average Glucose 91; Hemoglobin A1C 4.8 % (4.0-6.0)
[2021-11-20] MEDS: pantoprazole DR 40 mg Tablet PO (09:34)
[2021-11-20] MEDS: sodium chloride 0.9% 1,000 ML 75 ML IV (09:34)
[2021-11-20] MEDS: heparin 5,000 unit/mL INJ 1 mL 5000 UNIT SUBCUT ×2 (09:35→20:14)
[2021-11-20 09:52] LABS: Troponin 5 6HR 13.96 ng/L (0-10); Troponin 5 6HR Delta -6.04 ng/L (0-12)
--- NOTE | 2021-11-20 09:54 | PC.CHAP ---
Pastoral Care Encounter/Spiritual Assessment Type of Contact [] Declined call person visit [] Patient/Family/Request visit [] Outpatient visit [] Follow-up visit [] Physician referral [] Code/Alert [x] Routine visit [] Staff referral [] Actively dying [] Patient sleeping [] Family support [] [] Out of room [] Palliative care [] [] Receiving care in room [] Pre-surgical visit [] Trauma [] Long length of stay [] ICU visit [] Other: Relational/Emotional Strength [] Patient feels connected with others/family/visitors/staff [] Distress [] Loneliness/isolation [] Abandonment Spirituality of Patient [] Person of Abigail [] Attends Sabianism of their Abigail [] Believes in Prayer [] Reads Bible or Methodist materials [] There are Spiritual issues to be addressed Auto Damage Adjuster Interventions [x] Prayer [x] Active listening [x] Non-anxious presence [x] Spiritual/emotional support [] Crisis/trauma care [] Spiritual counseling [] Bereavement support [] Provided bereavement packet [] Provided Bible/devotional materials [] Provided toy/stuffed animal, coloring book to patient or family member [] Provided Communion [] Anointing/[place] [] Salvation [x] Completed spiritual assessment [] Other: Impact on Illness or Injury [] Angry [] Fearful [] Anxious [] Often cries [] Exhaustion [] Unable to work [] Unable to attend islam [] Unable to walk/stand [] Unable to read [] Unable to drive [] Unable to eat/drink [] Unable to sleep [] Unable to be with family [] Patient intubated [] Other: Summary stitches over left eye.. will be discharged tomorrow... Time spent with patient 5 min
[2021-11-20 10:13] LABS: Cortisol Random 24.08 ug/dL (2.47-19.5)
[2021-11-20 10:34] LABS: Folate Level 4.9 ng/mL (4.8-37.3)
[2021-11-20 10:43] LABS: Ferritin 156 ng/mL (15-150); Iron 42 ug/dL (37-145); Magnesium 1.6 mg/dL (1.7-2.3); Vitamin B12 279 pg/mL (232-1245)
[2021-11-20 10:44] LABS: Percent Saturation 14.5 % (20-50); Total Iron Binding Capacity 289 mcg/dl; Unsaturated Iron Binding 247 ug/dL (112-347)
[2021-11-20 10:45] LABS: Creatine Phosphokinase 46 U/L (26-192)
[2021-11-20 14:08] LABS: Anion Gap 19.2 (5-19); Blood Urea Nitrogen 24 mg/dL (6-20); Calcium 8.5 mg/dL (8.5-10.5); Carbon Dioxide 18 mmol/L (22-29); Chloride 103 mmol/L (98-107); Glomerular Filtration Rate 36.8 mL/min (90-130); Glucose 201 mg/dL (65-115); Osmolality Calculated 292 mOsm/kg (285-295); Potassium 4.2 mmol/L (3.5-5.1); Sodium 136 mmol/L (136-145)
[2021-11-20] MEDS: magnesium sulfate premix 2 GM/50 ML PIGGYBACK IV (14:54)
--- NOTE | 2021-11-20 20:34 | PC.NURSE ---
Received report from SACHA Lewis. Patient resting in bed watching tv. Patient denies pain or needs. Patient reports feeling much better. Instructed patient on heparin SQ and plan for the night. Patient verbalized complete understanding. No distress observed. Will continue to monitor.
[2021-11-21] MEDS: sodium chloride 0.9% 1,000 ML 75 ML IV (00:42)
[2021-11-21 03:05] VITALS: BP 130/94; PULSE 103; RESP 15; O2SAT 91
[2021-11-21 04:35] VITALS: PULSE 80
--- NOTE | 2021-11-21 05:14 | PC.NURSE ---
Patient reports feeling good this morning. Denies dizziness and lightheadedness. Received shower last night and tolerated well. Denies pain or other needs. No distress observed. Will continue to monitor.
[2021-11-21 07:42] LABS: Basophils # 0.1 10^3/uL (0.0-0.1); Basophils % 0.9 %; Eosinophils # 0.2 10^3/uL (0.0-0.8); Eosinophils % 2.8 %; Hematocrit 30.4 % (37.0-47.0); Hemoglobin 9.3 g/dL (11.5-15.3); Lymphocytes % 14.9 %; Mean Corpuscular HGB Conc 30.6 g/dL (30.0-36.0); Mean Corpuscular Hemoglobin 28.5 pg (28.0-34.0); Mean Corpuscular Volume 93.3 fl (81-99); Mean Platelet Volume 11.5 fL (7.4-10.4); Monocytes # 0.7 10^3/uL (0.2-0.9); Monocytes % 9.8 %; Neutrophils # 4.89 10^3/uL (1.8-7.7); Neutrophils % 71.3 %; Nucleated Red Blood Cells % 0 %; Platelet Count 285 10^3/cmm (130-400); Red Blood Count 3.26 10^6/uL (4.1-5.3); Red Cell Distribution Width 12.9 % (12.1-15.1); White Blood Count 6.9 10^3/uL (4.0-10.0)
[2021-11-21 08:00] VITALS: BP 133/94; PULSE 92; RESP 22; TEMP 36.3; O2SAT 98
[2021-11-21 08:05] LABS: Alanine Aminotransferase 17 U/L (0-33); Albumin Level 3.1 g/dL (3.5-5.2); Alkaline Phosphatase 73 IU/L (35-105); Blood Urea Nitrogen 16 mg/dL (6-20); Carbon Dioxide 19 mmol/L (22-29); Chloride 108 mmol/L (98-107); Glomerular Filtration Rate 39.8 mL/min (90-130); Glucose 86 mg/dL (65-115); Osmolality Calculated 290 mOsm/kg (285-295); Sodium 140 mmol/L (136-145); Total Bilirubin 0.3 mg/dL (0.15-1.2); Total Protein 5.1 g/dL (6.6-8.7)
[2021-11-21 08:13] LABS: Anion Gap 16.7 (5-19); Aspartate Amino Transferase 22 U/L (0-32); Potassium 3.7 mmol/L (3.5-5.1)
[2021-11-21] MEDS: acetaminophen 325 mg Tablet 650 MG PO (09:11)
[2021-11-21] MEDS: propranolol 40 mg Tablet 20 MG PO (09:11)
[2021-11-21] MEDS: pantoprazole DR 40 mg Tablet PO (09:11)
[2021-11-21] MEDS: heparin 5,000 unit/mL INJ 1 mL 5000 UNIT SUBCUT (09:14)
--- NOTE | 2021-11-21 09:40 | P.DS_ITS ---
Discharge Providers Date of Admission: 11/20/21 06:21 Date of Discharge: November 21, 2021 Attending Provider at Admission: Tanika Moncada MD Attending Provider at Discharge: Mauro Gage MD Primary Care Provider: Irasema Dalton MD Diagnoses at Discharge Discharge Diagnosis (1) Fall: Status: Acute (2) Hypotension: Status: Acute (3) Anemia: Status: Acute (4) Acute kidney injury: Status: Acute (5) Hyperglycemia: Status: Acute (6) Mitral regurgitation: Status: Acute (7) Multiple sclerosis: Status: Acute Reason for Visit Reason for Visit: Injury Fell Head Hospital Course Hospital Course Maribeth is a 51-year-old white female who presented to hospital with a fall, sustaining a laceration above her left eye. This was thought to be an episode of syncope, and blood pressure was markedly low at the hospital. Acute kidney injury was noted. There propranolol, lisinopril were discontinued. Mild anemia was also noted and she was found to be iron deficient. Echocardiogram was obtained which demonstrated her severe mitral regurgitation from previous was now only moderate to mild. During her hospital stay she was rehydrated, propranolol and lisinopril were held. The following day her renal function had improved significantly, from 1.8-1.4. Blood pressure had improved to 133/94. It was thought she could be discharged to home. She was told to avoid all anti- inflammatories, and lisinopril was discontinued. Propranolol added back at lower dose. Aspirin dose lowered, Protonix added. Iron added. To follow-up with her primary care provider regarding her anemia. Physical Exam Narrative: EXAM NARRATIVE: General exam no distress Neck is supple Cardiovascular regular rate and rhythm Lungs clear Abdomen is soft Extremities no cyanosis clubbing or edema Discharge Data Data Completed and Pending: Completed Studies During Hospitalization Category Date Time Status CT angio chest w abd pel w con Urge nt Cat Scan 11/20/21 04:[address] cervical spin wo con* [id number] Stat Cat Scan 11/20/21 04:[address] head wo con* [id number] Urgent Cat Scan 11/20/21 04:38 Completed XR chest 1V douglas ble [id number] Urgent Exams 11/20/21 03:31 Completed CV. echo complete * [id number] Routine Ultrasound 11/20/21 08:22 Completed Pending at discharge Category Date Time Status Blood Culture Sta t Lab 11/20/21 06:09 Results Immunochemical Fe sharmin OCB Routine Lab 11/20/21 08:22 Uncollected Urine Culture Rou almita Lab 11/20/21 10:30 Received Labs from last 24 hours 11/21/21 11/21/21 11/20/21 07:18 07:18 13:11 WBC 6.9 RBC 3.26 L Hgb 9.3 L Hct 30.4 L MCV 93.3 MCH 28.5 MCHC 30.6 RDW 12.9 Plt Count 285 MPV 11.5 H Neut % (Auto) 71.3 Lymph % (Auto) 14.9 [place] % (Auto) 9.8 Eos % (Auto) 2.8 Baso % (Auto) 0.9 Neut # (Auto) 4.89 Lymph # (Auto) 1.0 [place] # (Auto) 0.7 Eos # (Auto) 0.2 Baso # (Auto) 0.1 Nucleated RBC % (a uto) 0 Nucleated RBCs # 0.0 Sodium 140 136 Potassium 3.7 4.2 Chloride 108 H 103 Carbon Dioxide 19 L 18 L Anion Gap 16.7 19.2 H BUN 16 24 H Creatinine 1.4 H 1.5 H GFR Calculation 39.8 L 36.8 L Glucose 86 201 H Calculated Osmolal ity 290 292 Calcium 8.0 L 8.5 Magnesium Iron TIBC % Saturation Unsat Iron Binding Ferritin Total Bilirubin 0.3 AST 22 ALT 17 Alkaline Phosphata se 73 Creatine Kinase Troponin T Hi Sens 6Hr Troponin T Hi Sens 6Hr Delta Total Protein 5.1 L Albumin 3.1 L Globulin 2.0 Vitamin B12 Folate Random Cortisol 11/20/21 11/20/21 11/20/21 09:20 05:26 03:28 WBC RBC Hgb Hct MCV MCH MCHC RDW Plt Count MPV Neut % (Auto) Lymph % (Auto) [place] % (Auto) Eos % (Auto) Baso % (Auto) Neut # (Auto) Lymph # (Auto) [place] # (Auto) Eos # (Auto) Baso # (Auto) Nucleated RBC % (a uto) Nucleated RBCs # Sodium Potassium Chloride Carbon Dioxide Anion Gap BUN Creatinine GFR Calculation Glucose Calculated Osmolal ity Calcium Magnesium Iron TIBC % Saturation Unsat Iron Binding Ferritin Total Bilirubin AST ALT Alkaline Phosphata se Creatine Kinase 46 Troponin T Hi Sens 6Hr 13.96 H Troponin T Hi Sens 6Hr Delta -6.04 L Total Protein Albumin Globulin Vitamin B12 Folate Random Cortisol 24.08 H 11/20/21 11/20/21 03:28 03:28 WBC RBC Hgb Hct MCV MCH MCHC RDW Plt Count MPV Neut % (Auto) Lymph % (Auto) [place] % (Auto) Eos % (Auto) Baso % (Auto) Neut # (Auto) Lymph # (Auto) [place] # (Auto) Eos # (Auto) Baso # (Auto) Nucleated RBC % (a uto) Nucleated RBCs # Sodium Potassium Chloride Carbon Dioxide Anion Gap BUN Creatinine GFR Calculation Glucose Calculated Osmolal ity Calcium Magnesium 1.6 L Iron 42 TIBC 289 % Saturation 14.5 L Unsat Iron Binding 247 Ferritin 156 H Total Bilirubin AST ALT Alkaline Phosphata se Creatine Kinase Troponin T Hi Sens 6Hr Troponin T Hi Sens 6Hr Delta Total Protein Albumin Globulin Vitamin B12 279 Folate 4.9 Random Cortisol Vitals: Last Vital Signs Temp 97.4 F L 11/21/21 08:00 Pulse 92 11/21/21 08:00 Resp 22 H 11/21/21 08:00 BP 133/94 11/21/21 08:00 Pulse Ox 98 11/21/21 08:00 Discharge Plan Discharge Patient Disposition: Home Condition: Stable Prescriptions: New pantoprazole 40 mg Tablet,Delayed Release (Dr/Ec) 40 mg PO DAILY Qty: 30 RF: 0 propranolol 40 mg Tablet 20 mg PO BID Qty: 30 RF: 0 aspirin [Adult Aspirin Regimen] 81 mg tablet,delayed release (DR/EC) 81 mg PO DAILY Qty: 30 RF: 0 ferrous sulfate 325 mg (65 mg iron) tablet,delayed release (DR/EC) 325 mg PO BID Qty: 60 RF: 0 Continued triamcinolone acetonide 0.1 % cream 1 applic topical BID 7 Days Qty: 30 RF: 0 levocetirizine [Xyzal] 5 mg tablet 5 mg PO DAILY RF: 0 tizanidine 4 mg capsule 4 mg PO TID PRN (Reason: muscle spasms) RF: 0 Ocrevus 30 mg/mL solution 30 mg IV .[id number] RF: 0 eletriptan [Relpax] 20 mg tablet 20 mg PO Q2H PRN (Reason: migraine headache) Qty: 9 RF: 4 oxybutynin chloride 10 mg tablet extended release 24hr 10 mg PO DAILY Qty: 30 RF: 12 (DME) DME: [facility] See Rx Instructions .Route Qty: 1 RF: 0 ergocalciferol (vitamin D2) 1,250 mcg (50,000 unit) capsule See Rx Instructions .ROUTE .COMPLEX Qty: 8 RF: 4 melatonin 10 mg Tablet 10 mg PO BEDTIME RF: 0 Discontinued lisinopril 10 mg tablet 10 mg PO DAILY RF: 0 propranolol 60 mg tablet 60 mg PO DAILY RF: 0 aspirin 325 mg tablet 325 mg PO DAILY RF: 0 diclofenac potassium 50 mg tablet 50 mg PO Q8H PRN (Reason: arthritis pain) RF: 0 Discharge Orders: Discharge Order (Routine); Ordered 11/21/21 Ordered By: Mauro Gage Referrals: Irasema Dalton MD [Primary Care Provider] - 4-7 days (CBC and BMP on follow-up) Discharge Diet: Regular Discharge Activity: Increase activity as tolerated Patient Instructions: Opioid Safety Activity Restrictions/Additional Instructions: Do not take any anti-inflammatories. You are slightly anemic, follow-up with your primary care provider regarding this. Take Protonix daily. Your lisinopril has been discontinued along with your diclofenac. Propranolol dose has been decreased. Discharge Attestations Time Spent in Discharge Care*: greater than 30 min Quality Metrics Clinical Quality Measures During this hospital stay, did patient experience: None Coding Level of Care Code Acute g FW DC note Diagnoses Fall W19.XXXA Hypotension I95.9 Anemia D64.9 Acute kidney injury N17.9 Hyperglycemia R73.9 Mitral regurgitation I34.0 Multiple sclerosis G35
--- NOTE | 2021-11-21 09:51 | PC.CHAP ---
Pastoral Care Encounter/Spiritual Assessment Type of Contact [] Declined services manager visit [] Patient/Family/Request visit [] Outpatient visit [] Follow-up visit [] Physician referral [] Code/Alert [x] Routine visit [] Staff referral [] Actively dying [] Patient sleeping [] Family support [] [] Out of room [] Palliative care [] [x] Receiving care in room [] Pre-surgical visit [] Trauma [] Long length of stay [] ICU visit [] Other: Relational/Emotional Strength [x] Patient feels connected with others/family/visitors/staff [] Distress [] Loneliness/isolation [] Abandonment Spirituality of Patient [x] Person of Abigail [] Attends Tenriism of their Abigail [x] Believes in Prayer [] Reads Bible or Rastafarian materials [] There are Spiritual issues to be addressed Reliability Engineer Interventions [x] Prayer [x] Active listening [x] Non-anxious presence [x] Spiritual/emotional support [] Crisis/trauma care [x] Spiritual counseling [] Bereavement support [] Provided bereavement packet [] Provided Bible/devotional materials [] Provided toy/stuffed animal, coloring book to patient or family member [] Provided Communion [] Anointing/[place] [] Salvation [x] Completed spiritual assessment [] Other: Impact on Illness or Injury [] Angry [] Fearful [] Anxious [] Often cries [] Exhaustion [] Unable to work [] Unable to attend yazidi [] Unable to walk/stand [] Unable to read [] Unable to drive [] Unable to eat/drink [] Unable to sleep [] Unable to be with family [] Patient intubated [] Other: Summary fell and hit her head left a bruse feels good has a good attitude going home Time spent with patient 10 mins
[2021-11-21 10:00] VITALS: BP 123/89; PULSE 86; RESP 17
--- NOTE | 2021-11-21 10:00 | DCPLANNER ---
called to make followup appointment. Pcp schedule is full so they will call her with details of appointment when they figure out where they will work her in
[2021-11-21 11:45] VITALS: BP 125/87; PULSE 82; RESP 14
[2021-11-21 11:49] VITALS: BP 125/87; PULSE 82; RESP 14; TEMP 36.2; O2SAT 96
== END 2021-11-21 13:00 | disposition home or self-care (01) ==
LOC: ER 06:21 → CSU 06:26
PROVIDERS: Admitting Provider Student in an Organized Health Care Education/Training Program; Emergency Provider Emergency Medicine; PCP Internal Medicine; Visit Provider Internal Medicine
DX: I95.9 Hypotension, unspecified (principal); Z91.81 History of falling; D64.9 Anemia, unspecified; N17.9 Acute kidney failure, unspecified; R73.9 Hyperglycemia, unspecified; I34.0 Nonrheumatic mitral (valve) insufficiency; G35 Multiple sclerosis; Z79.82 Long term (current) use of aspirin; I12.9 Hypertensive chronic kidney disease with stage 1 through stage 4 chronic kidney disease, or unspecified chronic kidney disease; N18.9 Chronic kidney disease, unspecified
CPT/HCPCS: 12013; 36415; 51798; 70450; 71045; 71275; 72125; 74177; 80048; 80053; 81001; 82533; 82550; 82607; 82728; 82746; 83036; 83540; 83550; 83605; 83735; 84439; 84443; 84484; 85025; 87040; 87086; 90471; 90715; 93005; 93306; 96361; 96365; 96372; 96375; 99285; G0378; J1644; J1720; J2405; J3475; J7030; Q9967

== ENCOUNTER 2021-12-25 09:16 | Outpatient (CLI) | payer OTHER, SELFPAY ==
[2021-12-25 09:28] VITALS: BP 109/85; PULSE 85; RESP 18; TEMP 36.4; O2SAT 100
[2021-12-25] MEDS: acetaminophen 500 mg Tablet 1000 MG PO (09:49)
[2021-12-25] MEDS: sodium chloride 0.9% 250 ML 50 ML IV (09:50)
[2021-12-25] MEDS: diphenhydrAMINE 50 mg/mL SDV 1mL 25 MG IV (09:52)
[2021-12-25 10:27] VITALS: BP 114/79; PULSE 86; RESP 18; TEMP 36.6; O2SAT 100
[2021-12-25 10:59] VITALS: BP 111/81; PULSE 79; RESP 18; TEMP 36.7; O2SAT 100
[2021-12-25 12:35] VITALS: BP 130/85; PULSE 81; RESP 18; TEMP 36.2; O2SAT 99
== END 2021-12-25 09:17 | disposition home or self-care (01) ==
LOC: ONCMED 09:20
PROVIDERS: PCP Internal Medicine; Referring Provider Specialist; Visit Provider Specialist
DX: G35 Multiple sclerosis (principal)
CPT/HCPCS: 96365; 96366; 96375; J1200; J2350; J2930; J7040; J7050

== ENCOUNTER 2022-07-02 09:26 | Outpatient (CLI) | payer OTHER, SELFPAY ==
[2022-07-02 09:39] VITALS: BP 128/95; PULSE 58; RESP 18; TEMP 36.9; O2SAT 99
[2022-07-02] MEDS: sodium chloride 0.9% 250 ML 50 ML IV (10:08)
[2022-07-02] MEDS: acetaminophen 500 mg Tablet 1000 MG PO (10:09)
[2022-07-02] MEDS: diphenhydrAMINE 50 mg/mL SDV 1mL 25 MG IVP (10:10)
[2022-07-02 10:46] VITALS: BP 132/90; PULSE 64; RESP 18; TEMP 36.9; O2SAT 99
[2022-07-02 11:17] VITALS: BP 127/85; PULSE 59; RESP 16; TEMP 36.6; O2SAT 97
[2022-07-02 12:43] VITALS: BP 134/86; PULSE 71; RESP 18; TEMP 36.6; O2SAT 99
== END 2022-07-02 09:27 | disposition home or self-care (01) ==
PROVIDERS: PCP Internal Medicine; Visit Provider Specialist
DX: G35 Multiple sclerosis (principal)
CPT/HCPCS: 96365; 96366; 96375; J1200; J2350; J2930; J7040; J7050

== ENCOUNTER 2022-08-22 11:05 | Emergency (ER) | payer OTHER, SELFPAY ==
[2022-08-22 11:10] VITALS: BP 132/81; PULSE 84; RESP 18; TEMP 36.7; O2SAT 100; BMI 30.9
--- NOTE | 2022-08-22 11:28 | CT_ITS ---
WS: [id number] CT HEAD NONCONTRAST HISTORY: Trauma TECHNIQUE: Contiguous axial imaging performed through the brain in 2.5 mm imaging. Bone and soft tiss ue windows. Sagittal and coronal reformats reviewed. All CT scans at [facility] use at least one of these dose optimization techniques: automated exposure control; mA and/or kV adjustment per pa tient size (includes targeted exams where dose is matched to clinical indication); or iterative recon struction. DLP: 1021.78 mGy.cm COMPARISON: 11/20/2021 No acute intracranial hemorrhage, midline shift or mass effect. Mild atrophy. Numerous foci of decreased attenuation throughout the white matter in a periventricular distribution. These areas have been previously described with only mild progression. No obvious prog ression and no hemorrhage. Ventricles: Normal size with no hydrocephalus. Paranasal sinuses: As visualized are clear. Mastoid air cells: Well pneumatized. Calvarium and scalp: No skull fracture. Soft tissue injury along the posterior parieto-occipital denisse on. CT/CT head wo con* [id number] IMPRESSION: 1. No acute intracranial hemorrhage or edema. 2. Scalp injury along the posterior parietal occipital region. 3. Extensive white matter lesions in a periventricular distribution. Similar t o the prior study of 11/20/2021. Distribution suggests demyelinating disease. Mi crovascular ischemic disease also possibility.
--- NOTE | 2022-08-22 11:29 | ED_ITS ---
HPI - Fall General: Chief Complaint: Fall Stated Complaint: Fall-hit head Time Seen by Provider: 08/22/22 11:16 History of Present Illness: 51-year-old female presenting today with closed head injury. Patient notes she is walking up a step. When she lost her balance. Falling backward striking her head. Noted blood at the time. Takes a daily aspirin but otherwise no other blood thinners. She denies numbness tingling or weakness. She denies presyncopal symptoms preceding the fall. She denies chest pain or shortness of breath. She denies abdominal pain. She denies dysuria or polyuria. She denies numbness or tingling. She has no other complaints or concerns Review of Systems General: Reports: 10 or more systems reviewed and unremarkable except in HPI and below PFSH ED PFSH: Medical History Atrophic kidney Chronic kidney disease Cystitis Encounter for screening colonoscopy Normal colonoscopy Hypertension Migraine headache Mitral regurgitation Multiple sclerosis Urgency incontinence Family History Other Hypertension Denies family history of Diabetes Cancer Stroke Social History Smoking and tobacco status: never smoked Alcohol intake: current Alcohol intake frequency: 0-2 Drinks per Day Adopted: No Caregiver/support person: No Lives independently: No Household members: spouse Marital status: Current occupational status: disabled History of recent travel: No Physical Exam Const: COMMON NORMALS: no acute distress, patient oriented x3 and alert GENERAL APPEARANCE: cooperative ORIENTATION/CONSCIOUSNESS: Yes awake, Yes oriented to person, Yes oriented to place and Yes oriented to time HENMT: COMMON NORMALS: normocephalic, atraumatic, external ears normal, Normal external nose present and moist oral mucous membranes HEAD & SCALP: normal to inspection, normocephalic and atraumatic NOSE: Normal external nose present GENERAL EAR: hearing grossly impaired EXTERNAL EAR: Yes external ears normal Eye: COMMON NORMALS: Equal, round and reactive pupils present, EOMs intact bilaterally, conjunctivae normal and no scleral icterus GENERAL EYE: appearance normal, both eyes and all related structures EYELID: eyelids normal CONJUNCTIVA: Yes conjunctivae normal SCLERA: sclerae normal PUPIL: Yes Equal, round and reactive pupils present Neck/C-Spine: COMMON NORMALS: full ROM, supple and no JVD GENERAL: Yes normal visual inspection Lymph: LYMPHATIC: no lymphadenopathy noted and no lymphedema noted Chest: COMMONS NORMALS: normal inspection of the chest Resp: COMMON NORMALS: normal respiratory effort, No retractions and No use of accessory muscles Cardio: COMMON NORMALS: no JVD, regular rate and regular rhythm RATE: regular rate RHYTHM: regular rhythm GI: COMMON NORMALS: Normal to inspection, nondistended, normoactive bowel sounds present : COMMON NORMALS: Yes no CVA tenderness BLADDER/KIDNEY EXAM: Yes no CVA tenderness Back/Pelvis: COMMON NORMALS: no CVA tenderness and thoracic and lumbar spine normal to inspection Extremity: COMMON NORMALS: normal to inspection, full ROM and capillary refill normal GENERAL: Yes normal exam except as noted Neuro: COMMON NORMALS: patient oriented x3, CN's II-XII intact bilaterally, moves all extremities, no focal motor deficits, no sensory deficits noted and gait normal SENSORIUM/ORIENTATION: Yes alert, Yes oriented to person, Yes oriented to place and Yes oriented to time Psych: COMMON NORMALS: mental status grossly normal, Normal thought process present, cooperative and normal affect THOUGHT PROCESS: Normal thought process present Skin: COMMON NORMALS: no rashes or lesions noted and no wounds GENERAL SKIN EXAM: no rashes or lesions noted Course Vital Signs: Vital signs: Vital Signs Temperature 98.1 F 08/22/22 11:10 Pulse Rate 79 08/22/22 11:40 Respiratory Rate 16 08/22/22 11:40 Blood Pressure 124/102 08/22/22 11:40 Pulse Oximetry 98 08/22/22 11:40 Oxygen Delivery Me thod 08/22/22 11:10 MDM - Fall Medical Decision Making 51-year-old female presenting today with closed head injury. Fall appears to be mechanical in nature. CT head ordered for further evaluation. CT head is unremarkable. No evidence of closable wound. Patient was given strict return precautions and recommended routine outpatient follow-up. Lab Data Radiology Impressions Head CT 08/22/22 11:28 IMPRESSION: 1. No acute intracranial hemorrhage or edema. 2. Scalp injury along the posterior parietal occipital region. 3. Extensive white matter lesions in a periventricular distribution. Similar to the prior study of 11/20/2021. Distribution suggests demyelinating disease. Microvascular ischemic disease also possibility. Discharge Plan Discharge Patient Disposition: Home Clinical Impression: CHI (closed head injury) Condition: Stable Prescriptions: No Action venlafaxine [Effexor XR] 150 mg capsule,extended release 24hr 150 mg PO DAILY Qty: 90 2RF levocetirizine [Xyzal] 5 mg tablet 5 mg PO DAILY tizanidine 4 mg capsule 4 mg PO TID PRN (Reason: muscle spasms) eletriptan [Relpax] 20 mg tablet 20 mg PO Q2H PRN (Reason: migraine headache) Qty: 9 4RF (DME) DME: [facility] See Rx Instructions .Route Qty: 1 0RF Rx Instructions: As directed Ocrevus 30 mg/mL solution 600 mg IV .[id number] Qty: 20 1RF ergocalciferol (vitamin D2) [Vitamin D2] 1,250 mcg (50,000 unit) capsule See Rx Instructions .ROUTE .COMPLEX Qty: 32 0RF Dose Instruction: TAKE ONE CAPSULE BY MOUTH twice PER week Rx Instructions: TAKE ONE CAPSULE BY MOUTH twice PER week pantoprazole 40 mg Tablet,Delayed Release (Dr/Ec) 40 mg PO DAILY Qty: 30 0RF aspirin [Adult Aspirin Regimen] 81 mg tablet,delayed release (DR/EC) 81 mg PO DAILY Qty: 30 0RF ferrous sulfate 325 mg (65 mg iron) tablet,delayed release (DR/EC) 325 mg PO BID Qty: 60 0RF melatonin 10 mg Tablet 10 mg PO BEDTIME oxybutynin chloride 10 mg tablet extended release 24hr 10 mg PO DAILY vitamin B complex Tablet 1 tab PO DAILY Discharge Orders: Discharge ED (Routine); Ordered 08/22/22 Ordered By: Jaxson Brown Referrals: Irasema Dalton MD [Primary Care Provider] - Patient Instructions: Head Injury (ED) Coding Level of Care Code ED Network Systems Administrator for [place] Fwd Exam Comprehensive
[2022-08-22] MEDS: tetanus-dipt-pertussis 0.5 mL SDV IM (11:37)
[2022-08-22 11:40] VITALS: BP 124/102; PULSE 79; RESP 16; O2SAT 98
[2022-08-22 12:35] VITALS: BP 154/107; PULSE 71; O2SAT 99
== END 2022-08-22 12:30 | disposition home or self-care (01) ==
PROVIDERS: Emergency Provider Emergency Medicine; PCP Internal Medicine
DX: S09.8XXA Other specified injuries of head, initial encounter (principal); Z79.82 Long term (current) use of aspirin; I10 Essential (primary) hypertension; Z23 Encounter for immunization; W10.8XXA Fall (on) (from) other stairs and steps, initial encounter
CPT/HCPCS: 70450; 90471; 90715; 99284

== ENCOUNTER 2022-09-08 15:40 | Emergency (ER) | payer OTHER, SELFPAY ==
[2022-09-08 16:41] VITALS: BP 166/109; PULSE 100; RESP 14; TEMP 36.6; O2SAT 92; BMI 30.2
--- NOTE | 2022-09-08 16:47 | W.ED.HEATRA ---
HPI - Head Injury General: Chief complaint: Head Injury Stated complaint: head laceration Time Seen by Provider: 09/08/22 16:47 History of Present Illness: 51-year-old female with a history of multiple sclerosis went to step down off a curb and fell backwards striking her head against the ground. Patient denies loss of consciousness. Patient reports some head pain. Patient reports a fall about 1 week ago. Patient was brought in by EMS for evaluation. Patient reports difficulty walking due to her chronic illness. Review of Systems Const: Denies: fever(s) Card: Denies: chest pain Resp: Denies: dyspnea Skin/Breast: Reports: new lesions Neuro: Reports: headache(s) PFSH ED PFSH: Medical History Atrophic kidney Chronic kidney disease Cystitis Encounter for screening colonoscopy Normal colonoscopy Hypertension Migraine headache Mitral regurgitation Multiple sclerosis Urgency incontinence Family History Other Hypertension Denies family history of Diabetes Cancer Stroke Social History Smoking and tobacco status: never smoked Alcohol intake: current Alcohol intake frequency: 0-2 Drinks per Day Adopted: No Caregiver/support person: No Lives independently: No Household members: spouse Marital status: Current occupational status: disabled History of recent travel: No Physical Exam Const: COMMON NORMALS: alert HENMT: COMMON NORMALS: Normal external nose present HEAD & SCALP: abrasion (Occipital scalp) NOSE: Normal external nose present MOUTH: Normal oral and palatal mucosa present Neck/C-Spine: COMMON NORMALS: full ROM CERVICAL SPINE: No Cervical spine tenderness, No step off deformity and No Paracervical muscle tenderness Resp: COMMON NORMALS: normal respiratory effort Cardio: COMMON NORMALS: regular rate RATE: regular rate Back/Pelvis: COMMON NORMALS: thoracic and lumbar spine normal to inspection Extremity: COMMON NORMALS: full ROM Neuro: SENSORIUM/ORIENTATION: Yes alert Skin: COMMON NORMALS: turgor normal GENERAL SKIN EXAM: turgor normal Course Vital Signs: Vital signs: Vital Signs Temperature 97.8 F 09/08/22 16:41 Pulse Rate 100 09/08/22 16:41 Respiratory Rate 14 09/08/22 16:41 Blood Pressure 166/109 09/08/22 16:41 Pulse Oximetry 92 10/31/22 16:41 Oxygen Delivery Me thod 09/08/22 16:41 MDM - Head Injury Medcial Decision Making Patient comes in for evaluation after a fall. On exam patient has some abrasion to the posterior scalp. No definitive area for repair. No crepitus or depression of the skull is noted. Differential diagnosis includes fracture of skull, intracranial bleeding, abrasion, laceration. CT of the head was unremarkable. Patient has some abrasion and some contusion to the tissues of the abrasion. Discussed with patient we opted not to repair with sutures we will cover with antibiotic dressing and monitor. Patient reported understanding and agreed with plan. Lab Data Radiology Impressions Head CT 09/08/22 16:51 IMPRESSION: 1. Negative for intracranial hemorrhage or mass effect. 2. Right posterior scalp soft tissue swelling. 3. Moderate diffuse white matter disease likely reflecting chronic microvascular ischemic changes. Discharge Plan Discharge Patient Disposition: Home Clinical Impression: Multiple sclerosis Fall Qualifiers: Encounter type: initial encounter Qualified Code(s): W19.XXXA - Unspecified fall, initial encounter Abrasion of scalp Qualifiers: Encounter type: initial encounter Qualified Code(s): S00.01XA - Abrasion of scalp, initial encounter Condition: Stable Prescriptions: No Action venlafaxine [Effexor XR] 150 mg capsule,extended release 24hr 150 mg PO DAILY Qty: 90 2RF levocetirizine [Xyzal] 5 mg tablet 5 mg PO DAILY tizanidine 4 mg capsule 4 mg PO TID PRN (Reason: muscle spasms) (DME) DME: [facility] See Rx Instructions .Route Qty: 1 0RF Rx Instructions: As directed Ocrevus 30 mg/mL solution 600 mg IV .[id number] Qty: 20 1RF ergocalciferol (vitamin D2) [Vitamin D2] 1,250 mcg (50,000 unit) capsule See Rx Instructions .ROUTE .COMPLEX Qty: 32 0RF Dose Instruction: TAKE ONE CAPSULE BY MOUTH twice PER week Rx Instructions: TAKE ONE CAPSULE BY MOUTH twice PER week eletriptan [Relpax] 20 mg tablet 20 mg PO Q2H PRN (Reason: migraine headache) Qty: 9 4RF pantoprazole 40 mg Tablet,Delayed Release (Dr/Ec) 40 mg PO DAILY Qty: 30 0RF aspirin [Adult Aspirin Regimen] 81 mg tablet,delayed release (DR/EC) 81 mg PO DAILY Qty: 30 0RF ferrous sulfate 325 mg (65 mg iron) tablet,delayed release (DR/EC) 325 mg PO BID Qty: 60 0RF melatonin 10 mg Tablet 10 mg PO BEDTIME oxybutynin chloride 10 mg tablet extended release 24hr 10 mg PO DAILY vitamin B complex Tablet 1 tab PO DAILY Discharge Orders: Discharge ED (Routine); Ordered 09/08/22 Ordered By: Oni Caceres Referrals: Irasema Dalton MD [Primary Care Provider] - Discharge Diet: Usual diet Discharge Activity: Resume usual activity Patient Instructions: Abrasion (ED) Activity Restrictions/Additional Instructions: Keep wound covered for the next 24 hours with initial dressing. After that she can gently wash the wound with mild soap and water and apply antibiotic ointment until healed. Follow-up with primary care in 3 to 5 days for recheck. Return to ED for new concerns or worsening symptoms. Coding Level of Care Code ED Inspector Precision Assembly for Raymon Fwkika Exam Comprehensive
--- NOTE | 2022-09-08 16:51 | CTR_ITS ---
PROCEDURE INFORMATION: Exam: CT Head Without Contrast Exam date and time: 09/08/2022 5:01 PM Age: 51 years old Clinical indication: Injury or trauma; Fall; Abrasion; Scalp; Additional info: Head injury TECHNIQUE: Imaging protocol: Computed tomography of the head without contrast. Radiation optimization: All CT scans at this facility use at least one of these dose optimization techniques: automated exposure control; mA and/or kV adjustment per patient size (includes targeted exams where dose is matched to clinical indication); or iterative reconstruction. COMPARISON: CT head wo con* [id number] 08/22/2022 11:44 AM RADIATION DOSE METRICS: Total DLP (mGy-cm): 1030.28 FINDINGS: Brain: Moderate diffuse white matter disease likely reflecting chronic microvascular ischemic changes. Cerebral ventricles: No ventriculomegaly. Paranasal sinuses: Visualized sinuses are unremarkable. No fluid levels. Mastoid air cells: Visualized mastoid air cells are well aerated. Bones/joints: Unremarkable. No acute fracture. Soft tissues: Right posterior scalp soft tissue swelling. CT/CT head wo con* [id number] IMPRESSION: 1. Negative for intracranial hemorrhage or mass effect. 2. Right posterior scalp soft tissue swelling. 3. Moderate diffuse white matter disease likely reflecting chronic microvascular ischemic changes.
[2022-09-08] MEDS: bacitracin ointment Pkt 1 EACH TOPICAL (18:28)
== END 2022-09-08 18:30 | disposition home or self-care (01) ==
PROVIDERS: Emergency Provider Nurse Practitioner Family; PCP Internal Medicine
DX: S00.01XA Abrasion of scalp, initial encounter (principal); G35 Multiple sclerosis; Z79.82 Long term (current) use of aspirin; I12.9 Hypertensive chronic kidney disease with stage 1 through stage 4 chronic kidney disease, or unspecified chronic kidney disease; N18.9 Chronic kidney disease, unspecified; W10.1XXA Fall (on)(from) sidewalk curb, initial encounter
CPT/HCPCS: 70450; 99284

== ENCOUNTER 2022-10-21 16:43 | Outpatient (CLI) | payer OTHER, SELFPAY ==
--- NOTE | 2022-10-21 17:02 | MR_ITS ---
WS: [id number] MRI LUMBAR SPINE NONCONTRAST HISTORY: MS/CHRONIC/PROGRESSIVE, fall 4 days ago with back pain. COMPARISON: 08/25/2017 TECHNIQUE: Sagittal and axial multisequence imaging is submitted. Normal lumbar alignment with no compression fractures or marrow edema. Moderate disc space narrowing and desiccation at L5-S1 with mild progression since 2017. Endplate ost eochondrosis. The remaining vertebral bodies are normal. Conus terminates normally at L1-2 disc level. L1-L2: Normal. L2-L3: Mild disc bulging and facet arthritis. L3-L4: Normal. L4-L5: Very mild disc bulging and facet and ligamentum flavum hypertrophy. L5-S1: Mild osteophytic ridging and annular disc bulging with a central disc protrusion. Central disc protrusion slightly increased in size as compared to the prior study with more contact on the LEFT S 1 nerve root. Small central annular fissure associated with the disc. Retroperitoneum negative. MR/MR lumbar spine wo con* [id number] IMPRESSION: 1. Moderate degenerative disc disease with mild progression at L5-S1 with bashir cent endplate osteochondrosis. 2. Central disc protrusion at L5-S1 with annular fissure has slightly increase d in size since 2017. Slightly greater contact and displacement on the LEFT S1 nerve root. No significant stenosis.
== END 2022-10-21 16:44 | disposition home or self-care (01) ==
PROVIDERS: PCP Internal Medicine; Visit Provider Internal Medicine
DX: G35 Multiple sclerosis (principal); W19.XXXA Unspecified fall, initial encounter; M51.37 Other intervertebral disc degeneration, lumbosacral region; M51.27 Other intervertebral disc displacement, lumbosacral region
CPT/HCPCS: 72148

== ENCOUNTER → 2022-10-28 09:37 | Outpatient (BNVA) | payer OTHER, SELFPAY | PROVIDERS: PCP Internal Medicine; Visit Provider Urology | DX: N39.41 Urge incontinence (principal); N30.90 Cystitis, unspecified without hematuria; G35 Multiple sclerosis; N31.9 Neuromuscular dysfunction of bladder, unspecified | CPT/HCPCS: 81003 ==

== ENCOUNTER 2022-11-26 14:24 | Outpatient (CLI) | payer OTHER, SELFPAY ==
--- NOTE | 2022-11-26 14:31 | MM_ITS ---
WS: [id number] BILATERAL 3D TOMOSYNTHESIS DIGITAL SCREENING MAMMOGRAPHY WITH CAD CLINICAL INFORMATION: SCREENING HISTORY: Screening mammogram. No current complaints. COMPARISON: January 23, 2021 TECHNIQUE: Bilateral CC and MLO views. FINDINGS: Scattered fibroglandular densities bilaterally. No suspicious focal mass, asymmetry, calcifications, or architectural distortion. No evidence of malignancy. Punctate and lucent centered calcifications. MM/[place] [id number] IMPRESSION: BI-RADS: 2-Benign FOLLOW UP: 1 Year Follow-up Recommend return to annual screening mammography.
== END 2022-11-26 14:25 | disposition home or self-care (01) ==
LOC: RAD 14:26
PROVIDERS: PCP Internal Medicine; Visit Provider Internal Medicine
DX: Z12.31 Encounter for screening mammogram for malignant neoplasm of breast (principal)
CPT/HCPCS: 77063; 77067

== ENCOUNTER 2023-01-06 12:06 | Outpatient (CLI) | payer OTHER, SELFPAY ==
--- NOTE | 2023-01-06 | XR_ITS ---
WS: [id number] Left shoulder, 3 views, 01/06/2023 Clinical Data: PAIN IN LEFT SHOULDER Comparison: None. Findings: No fractures or dislocations are seen. The AC joint is normal. The adjacent left clavicle, left scapu la and ribs are normal. The soft tissues are unremarkable. XR/XR shoulder LT min 2V* [id number] Impression: Negative left shoulder.
== END 2023-01-06 12:07 | disposition home or self-care (01) ==
PROVIDERS: PCP Internal Medicine; Visit Provider Internal Medicine
DX: M25.512 Pain in left shoulder (principal)
CPT/HCPCS: 73030

== ENCOUNTER 2023-01-22 08:55 | Oncology outpatient (recurring) (ONCR) | payer OTHER, SELFPAY ==
[2023-01-22 09:28] VITALS: BP 150/97; PULSE 85; RESP 16; TEMP 36.3; O2SAT 99
[2023-01-22] MEDS: acetaminophen 500 mg Tablet 1000 MG PO (09:55)
[2023-01-22] MEDS: sodium chloride 0.9% 250 ML 50 ML IV (09:55)
[2023-01-22] MEDS: diphenhydrAMINE 50 mg/mL SDV 1mL 25 MG IVP (09:56)
[2023-01-22] MEDS: ocrelizumab 600 MG in sodium chloride 0.9% 500 ML 100 MG IV (10:18)
[2023-01-22 10:35] VITALS: BP 143/94; PULSE 90; RESP 16; O2SAT 99
[2023-01-22 10:50] VITALS: BP 146/95; PULSE 83; RESP 16; TEMP 36.6; O2SAT 99
[2023-01-22 11:20] VITALS: BP 138/88; PULSE 84; RESP 16; TEMP 36.9; O2SAT 99
[2023-01-22 13:15] VITALS: BP 133/81; PULSE 92; RESP 16; TEMP 37; O2SAT 92
== END 2023-02-06 23:59 | disposition home or self-care (01) ==
PROVIDERS: PCP Internal Medicine; Visit Provider Specialist
DX: Z51.12 Encounter for antineoplastic immunotherapy (principal); G35 Multiple sclerosis; Z79.899 Other long term (current) drug therapy
CPT/HCPCS: 96375; 96413; 96415; J1200; J2350; J2930; J7040; J7050

== ENCOUNTER 2023-07-22 09:16 | Oncology outpatient (recurring) (ONCR) | payer OTHER, SELFPAY ==
[2023-07-22 09:23] VITALS: BP 138/87; PULSE 82; RESP 16; TEMP 36.4; O2SAT 100
[2023-07-22] MEDS: acetaminophen 500 mg Tablet 1000 MG PO (09:43)
[2023-07-22] MEDS: methylPREDNISolone sod succ 125 mg SDV IVP (09:44)
[2023-07-22] MEDS: sodium chloride 0.9% 250 ML 75 ML IV (09:44)
[2023-07-22] MEDS: diphenhydrAMINE 50 mg/mL SDV 1mL 25 MG IVP (09:49)
[2023-07-22] MEDS: ocrelizumab 600 MG in sodium chloride 0.9% 500 ML 100 MG IV (10:28)
[2023-07-22 10:30] VITALS: BP 138/87; PULSE 82; RESP 16; TEMP 36.4; O2SAT 100
[2023-07-22 10:45] VITALS: BP 136/82; PULSE 84; RESP 16; TEMP 35.6; O2SAT 100
[2023-07-22 11:00] VITALS: BP 129/83; PULSE 78; RESP 16; TEMP 36.2; O2SAT 98
[2023-07-22 11:30] VITALS: BP 128/75; PULSE 67; RESP 16; TEMP 36; O2SAT 90
[2023-07-22 13:20] VITALS: BP 129/87; PULSE 79; RESP 16; TEMP 36.2; O2SAT 99
== END 2023-07-22 23:59 | disposition home or self-care (01) ==
LOC: ONCMED 09:16
PROVIDERS: PCP Internal Medicine; Visit Provider Specialist
DX: G35 Multiple sclerosis; Z79.899 Other long term (current) drug therapy
CPT/HCPCS: 96375; 96413; 96415; J1200; J2350; J2930; J7040; J7050

== ENCOUNTER 2023-08-18 07:51 | Outpatient (CLI) | payer OTHER, SELFPAY ==
--- NOTE | 2023-08-18 08:00 | MR_ITS ---
WS: [id number] MRI LEFT SHOULDER NONCONTRAST TECHNIQUE: Sagittal T2, coronal T1, T2 and proton density imaging. Axial gradient PDE imaging. CLINICAL INFORMATION: M25.512 - Pain in left shoulder COMPARISON: None. FINDINGS: Mild degenerative arthritis AC joint with slight subacromial spurring. Small amount of subacromial an d subdeltoid fluid. Thinning of the distal supraspinatus and infraspinatus. Tendinopathy distal supra spinatus and infraspinatus. Tiny undersurface tear at the supraspinatus insertion. Tiny infraspinatus insertional tear. No tendon retraction. Normal teres minor. Normal subscapularis. Normal biceps tendon in the bicipital groove. Glenoid labru m appears grossly normal. No significant joint effusion. Biceps labral anchor appears intact. Intra-a rticular biceps tendon appears intact. Normal bone marrow signal in the humeral head and glenoid. IMPRESSION: 1. Mild degenerative arthritis AC joint with slight subacromial spurring. Small amount of subacromia l and subdeltoid fluid. Mild narrowing of the subacromial space. 2. Tendinopathy in the distal infraspinatus and supraspinatus with chronic thinning. 3. Small undersurface insertional tears infraspinatus and supraspinatus insertions. 4. Biceps tendon appears intact within the bicipital groove. 5. No other acute findings.
== END 2023-08-18 07:52 | disposition home or self-care (01) ==
LOC: RAD 07:52
PROVIDERS: PCP Internal Medicine; Visit Provider Specialist
DX: M19.012 Primary osteoarthritis, left shoulder (principal); M67.814 Other specified disorders of tendon, left shoulder; M75.102 Unspecified rotator cuff tear or rupture of left shoulder, not specified as traumatic
CPT/HCPCS: 73221

== ENCOUNTER 2023-08-19 06:00 | Outpatient (RCR) | payer OTHER, SELFPAY | END 2023-09-08 23:59 | disposition home or self-care (01) | LOC: SPT 06:00 | PROVIDERS: PCP Internal Medicine; Referring Provider Internal Medicine; Visit Provider Internal Medicine | DX: M25.512 Pain in left shoulder (principal) | CPT/HCPCS: 97110; 97161 ==

== ENCOUNTER 2023-08-19 11:52 | Outpatient (RCR) | payer OTHER, SELFPAY | END 2023-09-08 23:59 | disposition home or self-care (01) | LOC: SPT 11:52 | PROVIDERS: PCP Internal Medicine; Visit Provider Specialist | DX: M25.512 Pain in left shoulder (principal) | CPT/HCPCS: 97110; 97112; 97161 ==

== ENCOUNTER 2023-09-09 06:00 | Outpatient (RCR) | payer OTHER, SELFPAY | END 2023-09-24 23:59 | disposition home or self-care (01) | LOC: SPT 06:00 | PROVIDERS: PCP Internal Medicine; Referring Provider Internal Medicine; Visit Provider Internal Medicine | DX: M25.512 Pain in left shoulder (principal) | CPT/HCPCS: 97110 ==

== ENCOUNTER 2023-09-09 06:00 | Outpatient (RCR) | payer OTHER, SELFPAY | END 2023-09-24 23:59 | disposition home or self-care (01) | LOC: SPT 06:00 | PROVIDERS: PCP Internal Medicine; Visit Provider Specialist | DX: G35 Multiple sclerosis (principal); M51.16 Intervertebral disc disorders with radiculopathy, lumbar region; R26.9 Unspecified abnormalities of gait and mobility | CPT/HCPCS: 97110; 97112 ==

== ENCOUNTER 2023-12-04 10:28 | Outpatient (CLI) | payer OTHER, SELFPAY ==
--- NOTE | 2023-12-04 | MM_ITS ---
WS: [id number] BILATERAL SCREENING DIGITAL TOMOSYNTHESIS MAMMOGRAM WITH CAD HISTORY: SCREENING COMPARISON: 11/26/2022, 09/26/2021 Bilateral CC and MLO views with tomosynthesis and synthetic mammography submitted. Computer aided det ection analyzed. Breast composition: The breasts are almost entirely fatty. No suspicious masses, microcalcifications or architectural distortion. Numerous bilateral calcifications within each breast but much greater on the RIGHT. IMPRESSION: MM/[place] [id number] BI-RADS: 2-Benign FOLLOW UP: 1 Year Follow-up
== END 2023-12-04 10:29 | disposition home or self-care (01) ==
PROVIDERS: PCP Internal Medicine; Visit Provider Internal Medicine
DX: Z12.31 Encounter for screening mammogram for malignant neoplasm of breast (principal); R92.1 Mammographic calcification found on diagnostic imaging of breast
CPT/HCPCS: 77063; 77067

== ENCOUNTER 2024-02-04 19:30 | Emergency (ER) | payer OTHER, SELFPAY ==
[2024-02-04 19:37] VITALS: BP 138/88; PULSE 96; RESP 16; TEMP 36.8; O2SAT 100
--- NOTE | 2024-02-04 20:07 | CTR_ITS ---
PROCEDURE INFORMATION: Exam: CT Head Without Contrast Exam date and time: 02/04/2024 8:23 PM Age: 53 years old Clinical indication: Injury or trauma; Fall; Additional info: Trauma/fall TECHNIQUE: Imaging protocol: Computed tomography of the head without contrast. Axial, coronal and sagittal reformatted images were created and reviewed. Radiation optimization: All CT scans at this facility use at least one of these dose optimization techniques: automated exposure control; mA and/or kV adjustment per patient size (includes targeted exams where dose is matched to clinical indication); or iterative reconstruction. COMPARISON: CT head wo con* [id number] 09/08/2022 5:01 PM RADIATION DOSE METRICS: Total DLP (mGy-cm): 901.3 FINDINGS: Brain: Patchy areas of hypoattenuation in the periventricular and subcortical white matter, consistent with chronic small vessel ischemic disease. Focal, well-circumscribed hypodensities in the basal ganglia, consistent with chronic lacunar infarcts. No CT evidence of acute intracranial hemorrhage or acute territorial infarction. No significant mass effect or midline shift. Basal cisterns patent. Cerebral ventricles: Prominence of the cortical sulci, cisterns and ventricular system, consistent with cerebral and cerebellar volume loss. Paranasal sinuses: Mild ethmoid mucosal thickening. No fluid levels. Mastoid air cells: Grossly unremarkable. Bones/joints: No acute osseous abnormality. Soft tissues: Grossly unremarkable. CT/CT head wo con* [id number]: 1[address] No CT evidence of acute intracranial pathology. 2. Additional findings, as above.
--- NOTE | 2024-02-04 20:07 | CTR_ITS ---
PROCEDURE INFORMATION: Exam: CT Cervical Spine Without Contrast Exam date and time: 02/04/2024 8:23 PM Age: 53 years old Clinical indication: Injury or trauma; Fall; Additional info: Trauma/fall TECHNIQUE: Imaging protocol: Computed tomography of the cervical spine without contrast. Axial, coronal and sagittal reformatted images were created and reviewed. Radiation optimization: All CT scans at this facility use at least one of these dose optimization techniques: automated exposure control; mA and/or kV adjustment per patient size (includes targeted exams where dose is matched to clinical indication); or iterative reconstruction. COMPARISON: CT cervical spin wo con* [id number] 11/20/2021 4:57 AM RADIATION DOSE METRICS: Total DLP (mGy-cm): 493.4 FINDINGS: Bones/joints: Straightening of the normal cervical lordosis. No CT evidence of acute fracture, dislocation or subluxation. Alignment anatomic. Vertebral body heights maintained. Mild multilevel spondylosis without significant spinal canal or neural foraminal stenosis. Lungs: Grossly unremarkable. Soft tissues: Grossly unremarkable. CT/CT cervical spin wo con* [id number] [address]: 1[address] No CT evidence of acute cervical spine traumatic injury. 2. Additional findings, as above.
--- NOTE | 2024-02-04 20:15 | W.ED.HEATRA ---
HPI - Head Injury General: Chief complaint: Head Injury Stated complaint: Fell Head Injury Time Seen by Provider: 02/04/24 20:07 History of Present Illness: 53-year-old female presents emergency department with her spouse. Patient states that she was walking with him when she accidentally had a misstep and rolled her foot and fell backwards to the ground. She denies loss of consciousness. She states that there was a nurse at the area where she fell who looked at it and advised her to come to the emergency department for evaluation. The patient denies nausea, vomiting change in vision, or back pain. She states she does have a 2 out of 10 throbbing headache. She states she also has a laceration to the back of her head from the fall. She states she did fall from a standing position backwards and hit solid surface which was concrete. She states this occurred approximately 45 minutes prior to arrival here in the emergency department. Associated symptoms: Deny neck pain Review of Systems General: Reports: 10 or more systems reviewed and unremarkable except in HPI and below Musc: Denies: neck pain, back pain or extremity pain Skin/Breast: Reports: other (Scalp laceration-occipital) Neuro: Reports: headache(s); Denies: numbness in extremities PFSH ED PFSH: Medical History (Updated 02/04/24 @ 20:21 by Hubert Colon MD) Arthritis of left acromioclavicular joint Tendinopathy of left shoulder Migraine headache Chronic kidney disease Atrophic kidney Mitral regurgitation Encounter for screening colonoscopy Normal colonoscopy Hypertension Cystitis Urgency incontinence Multiple sclerosis Family History Other Hypertension Denies family history of Diabetes Cancer Stroke Social History Smoking and tobacco/nicotine status: never used tobacco/nicotine Alcohol intake: current Alcohol intake frequency: few times a week Substance/Drug Use: unknown Adopted: No Caregiver/support person: No Lives independently: No Household members: spouse Marital status: Current occupational status: disabled Physical Exam Narrative: EXAM NARRATIVE: Constitutional: the patient appears well nourished and with normal development. Vital signs reviewed as documented. GCS 15, HENMT: Occipital scalp hematoma approximately 4 cm, 4 cm x 2 cm occipital hematoma noted.. External ears normal appearance without drainage. Nose without drainage, normal appearance. Mucus membranes moist. Neck is supple, No jugular venous distension, trachea is midline, no appreciable carotid bruits. No lymphadenopathy. Nontender to palpation, no crepitus, no palpable step-offs, Flexion, extension and lateral rotation is without pain. Eyes: Pupils are equal, round, reactive to light and accommodation. No scleral icterus. Extra-ocular movement are intact. Thorax is symmetrical and with equal rise and fall with respirations. Nontender to palpation. Resp: Lungs are clear to auscultation. No wheezes, rales, crackles or ronchi at present. Cardio: Regular rate and rhythm. Positive S1, S2. No appreciable murmurs, rubs or gallops. GI: Abdominal exam reveals normal bowel sounds to all quadrants. Soft, non-tender to palpation. Extremity: Extremities are non-edematous and both femoral and pedal pulses are 2+ and equal bilaterally. Moves all extremities well, sensation in all extremities. Neuro: Alert and oriented x4, person, place, time and situation. Cranial nerves II through XII are grossly intact, there is no focal neurological deficits that I can appreciate at present. Sensation intact to all extremities. 2-point discrimination intact. Light touch intact to all extremities. Motor strength in the upper and lower extremities are equal and bilateral 5/5. Psych: Cooperative, calm, normal thought process, appropriate judgment. Skin: No lesions, rashes. 4 cm x 0.25 mm vertical laceration to the occipital region. Occipital scalp hematoma noted. Back: Symmetrical, no obvious deformity, no palpable step-offs, nontender to palpation, no crepitus, normal alignment Course ED course: Laceration Repair: The patient verbally consents to a wound repair. A time out was performed. Side and sight are verified. Patient identification is verified. The wound is anesthetized with- 5ml of 1% Lidoaine with epinephrine It is then copiously irrigated with sterile saline and cleansed with saline and betadine mixture. The wound measures [-*4 cm-] in length by [-*0.25 mm-] in depth. It is approximated using simple surgical narciso Total number [-*6-]. Good approximation is achieved. Hemostasis is maintained. It is dressed with antibiotic ointment and a bulky dressing. Follow-up instructions were provided to the patient. The patient was educated on the signs of infection and return precautions. The patient was advised to follow-up with a medical provider in 10-14 days to have the wound evaluated for possible suture removal. Vital Signs: Vital signs: Vital Signs Temperature 98.2 F 02/04/24 19:37 Pulse Rate 95 02/04/24 21:12 Respiratory Rate 18 02/04/24 21:12 Blood Pressure 113/84 02/04/24 21:12 Pulse Oximetry 100 02/04/24 21:12 Oxygen Delivery Me thod Room Air 02/04/24 19:37 MDM - Head Injury Medcial Decision Making Physical exam completed and documented I did obtain a CT scan of the patient's head and neck given her mechanism of injury. I have provided laceration repair as documented. Medical Records I reviewed the patient's medical records. Lab Data Radiology Impressions Cervical Spine CT 02/04/24 20:[address]: [address] evidence of acute cervical spine traumatic injury. 2. Additional findings, as above. Head CT 02/04/24 20:[address]: 1[address] No [address] evidence of acute intracranial pathology. 2. Additional findings, as above. All radiology interpretation(s) finalized by discharge Discharge Plan Discharge Patient Disposition: Home Clinical Impression: Accidental fall, Laceration of occipital scalp, Hematoma of occipital region of scalp Condition: Stable Prescriptions: No Action levocetirizine [Xyzal] 5 mg tablet 5 mg PO DAILY tizanidine 4 mg capsule 4 mg PO TID PRN (Reason: muscle spasms) Ocrevus 30 mg/mL solution 600 mg IV .[id number] Qty: 20 1RF venlafaxine 150 mg capsule,extended release 24hr See Rx Instructions .ROUTE .COMPLEX Qty: 90 3RF Dose Instruction: take 1 capsule BY MOUTH EVERY DAY Rx Instructions: take 1 capsule BY MOUTH EVERY DAY ergocalciferol (vitamin D2) [Vitamin D2] 1,250 mcg (50,000 unit) capsule See Rx Instructions .ROUTE .COMPLEX Qty: 90 3RF Dose Instruction: TAKE ONE CAPSULE BY MOUTH twice PER week Rx Instructions: TAKE ONE CAPSULE BY MOUTH twice PER week eletriptan [Relpax] 20 mg tablet 20 mg PO Q2H PRN (Reason: migraine headache) Qty: 9 6RF pantoprazole 40 mg tablet,delayed release (DR/EC) 40 mg PO DAILY Qty: 30 0RF azithromycin 250 mg tablet See Rx Instructions PO .COMPLEX Qty: 6 0RF Rx Instructions: take 500 mg today (day 1), then 250 mg for 4 days (days 2-5) PO (DME) DME: [facility] See Rx Instructions .Route Qty: 1 0RF Rx Instructions: As directed aspirin [Adult Aspirin Regimen] 81 mg tablet,delayed release (DR/EC) 81 mg PO DAILY Qty: 30 0RF ferrous sulfate 325 mg (65 mg iron) tablet,delayed release (DR/EC) 325 mg PO BID Qty: 60 0RF melatonin 10 mg Tablet 10 mg PO BEDTIME oxybutynin chloride 10 mg tablet extended release 24hr 10 mg PO DAILY vitamin B complex Tablet 1 tab PO DAILY Discharge Orders: Discharge ED (Routine); Ordered 02/04/24 Ordered By: Hubert Colon Referrals: Irasema Dalton MD [Primary Care Provider] - Discharge Diet: Usual diet Discharge Activity: Resume usual activity Patient Instructions: Opioid Safety, Pain Management Activity Restrictions/Additional Instructions: Activity Restrictions/Additional Instructions: Thank you for choosing [facility] for your healthcare needs today. Please realize that you were seen in the Emergency Department and that we are providing you with an emergency medical screening exam and this may not be a complete and all inclusive of all the testing and or medical work-up that you may need to determine your ailment or severity of your illness. It is very important that you follow-up as instructed with your Primary care provider or Specialist for additional evaluation and to discuss your medical treatment plan. You may return to the Emergency Department should you have concerns or if your condition changes or worsens in any way. Coding Level of Care Code ED Service Engineer for Raymon Abarca
[2024-02-04 21:12] VITALS: BP 113/84; PULSE 95; RESP 18; O2SAT 100
[2024-02-04] MEDS: neomycin-poly-bacitracin oint 0.9 gm Pkt 1 APPLIC TOPICAL (21:39)
[2024-02-04] MEDS: lidocaine-epi 1% 20 mL INJ INJECTION (21:39)
[2024-02-04 21:43] VITALS: BP 127/87; PULSE 82; RESP 14; O2SAT 98
== END 2024-02-04 21:45 | disposition home or self-care (01) ==
PROVIDERS: Emergency Provider Internal Medicine; PCP Internal Medicine
DX: S01.01XA Laceration without foreign body of scalp, initial encounter (principal); Z79.82 Long term (current) use of aspirin; I12.9 Hypertensive chronic kidney disease with stage 1 through stage 4 chronic kidney disease, or unspecified chronic kidney disease; N18.9 Chronic kidney disease, unspecified; G35 Multiple sclerosis; W01.0XXA Fall on same level from slipping, tripping and stumbling without subsequent striking against object, initial encounter
CPT/HCPCS: 12002; 70450; 72125; 99284

== ENCOUNTER 2024-06-08 11:18 | Outpatient (RCR) | payer OTHER, SELFPAY | END 2024-06-08 23:59 | disposition home or self-care (01) | LOC: SPT 11:18 | PROVIDERS: PCP Internal Medicine; Visit Provider Specialist | DX: G35 Multiple sclerosis (principal) | CPT/HCPCS: 97161 ==

== ENCOUNTER 2024-06-09 06:00 | Outpatient (RCR) | payer OTHER, SELFPAY | END 2024-07-09 23:59 | disposition home or self-care (01) | LOC: SPT 06:00 | PROVIDERS: PCP Internal Medicine; Visit Provider Specialist | DX: G35 Multiple sclerosis (principal) | CPT/HCPCS: 97110; 97112 ==

== ENCOUNTER 2024-07-10 06:00 | Outpatient (RCR) | payer OTHER, SELFPAY | END 2024-08-08 23:59 | disposition home or self-care (01) | LOC: SPT 06:00 | PROVIDERS: PCP Internal Medicine; Visit Provider Specialist | DX: G35 Multiple sclerosis (principal) | CPT/HCPCS: 97110; 97112 ==

== ENCOUNTER 2024-08-09 06:00 | Outpatient (RCR) | payer OTHER, SELFPAY | END 2024-09-08 23:59 | disposition home or self-care (01) | LOC: SPT 06:00 | PROVIDERS: PCP Internal Medicine; Visit Provider Specialist | DX: G35 Multiple sclerosis (principal) | CPT/HCPCS: 97110; 97112 ==

== ENCOUNTER 2024-09-09 06:00 | Outpatient (RCR) | payer OTHER, SELFPAY | END 2024-10-08 23:59 | disposition home or self-care (01) | LOC: SPT 06:00 | PROVIDERS: PCP Internal Medicine; Visit Provider Specialist | DX: G35 Multiple sclerosis (principal) | CPT/HCPCS: 97110 ==

== ENCOUNTER 2024-11-15 08:02 | Oncology outpatient (recurring) (ONCR) | payer OTHER, SELFPAY ==
[2024-11-15 09:15] VITALS: BP 130/83; PULSE 63; RESP 16; TEMP 35.7; O2SAT 100
[2024-11-15] MEDS: sodium chloride 0.9% 250 ML 50 ML IV (09:42)
[2024-11-15] MEDS: acetaminophen 500 mg Tablet 1000 MG PO (09:43)
[2024-11-15] MEDS: diphenhydrAMINE 50 mg/mL SDV 1mL 25 MG IVP (09:43)
[2024-11-15] MEDS: methylPREDNISolone sod succ 125 mg/2 mL INJ IVP (09:51)
[2024-11-15] MEDS: ocrelizumab 600 MG in sodium chloride 0.9% 500 ML 100 MG IV (10:30)
[2024-11-15 10:35] VITALS: BP 139/95; PULSE 66; RESP 15; TEMP 35.8; O2SAT 99
[2024-11-15 10:52] VITALS: BP 138/96; PULSE 58; RESP 16; O2SAT 98
[2024-11-15 11:08] VITALS: BP 122/81; PULSE 57; RESP 16; O2SAT 99
[2024-11-15 11:38] VITALS: BP 136/84; PULSE 62; RESP 15; O2SAT 100
[2024-11-15 12:53] VITALS: BP 130/94; PULSE 61; RESP 15; O2SAT 94
== END 2024-12-09 23:59 | disposition home or self-care (01) ==
PROVIDERS: PCP Internal Medicine; Visit Provider Specialist
DX: G35 Multiple sclerosis (principal); Z79.899 Other long term (current) drug therapy
CPT/HCPCS: 96375; 96413; 96415; A4222; J1200; J2350; J2919; J7040; J7050

== ENCOUNTER 2025-02-15 09:32 | Outpatient (CLI) | payer OTHER, SELFPAY ==
--- NOTE | 2025-02-15 09:36 | MM_ITS ---
WS: [id number] VIEWS: MLO and CC views both breasts. 3D digital tomosynthesis is also included in this exam. Comparison made with prior exam of 11/17/2012, 01/09/2014, 04/03/2016, 12/07/2018, 01/23/2021, 11/26/2022, 12/04/2023.. Findings: There are scattered areas of fibroglandular density. No sign of suspicious mass, tumor calcification or architectural distortion. MM/MM scr BI tomosynthesis [id number] Impression: BI-RADS: 2 - Benign. FOLLOW-UP: 1 Year Follow-up This mammogram was also analyzed by the Computer Aided Detection System R2 Imag e Scientific Illustrator.
== END 2025-02-15 09:33 | disposition home or self-care (01) ==
LOC: RAD 09:33
PROVIDERS: PCP Internal Medicine; Visit Provider Internal Medicine
DX: Z12.31 Encounter for screening mammogram for malignant neoplasm of breast (principal); R92.323 Mammographic fibroglandular density, bilateral breasts
CPT/HCPCS: 77063; 77067

== ENCOUNTER 2025-05-22 07:59 | Oncology outpatient (recurring) (ONCR) | payer OTHER, SELFPAY ==
[2025-05-22] VITALS (7 sets, daily range): BP systolic 112–150; BP diastolic 74–98; PULSE 50–68; RESP 16–17; TEMP 35.8–36.8; O2SAT 96–100
[2025-05-22] MEDS: diphenhydrAMINE 50 mg/mL SDV 1mL 25 MG IVP (09:30)
[2025-05-22] MEDS: methylPREDNISolone sod succ 125 mg/2 mL INJ IVP (09:38)
== END 2025-06-08 23:59 | disposition home or self-care (01) ==
LOC: ONCMED 07:59
PROVIDERS: PCP Internal Medicine; Visit Provider Specialist
DX: G35 Multiple sclerosis (principal); Z79.899 Other long term (current) drug therapy
CPT/HCPCS: 96375; 96413; 96415; A4222; J1200; J2350; J2919; J7040; J7050; J9999

== ENCOUNTER 2025-10-07 12:24 | Emergency (ER) | payer OTHER, SELFPAY ==
--- OUTSIDE RECORDS SUMMARY | 2025-10-07 12:29 | XMS_ITS | Encounter Summary ---
Author Organization [facility] Address [address] [place] [address] Care Team Providers Care Dual Rate Dealer Name Role Phone Unavailable Primary Care Provider Unavailabl e Encounter Details Date Type Department Care Team (Latest Contact Info) Description 01/29/1998 Outpatient Historical [facility] [address] [place] [address] Kun Alarcon MD [address] [address] [place], [place] [id number] Benign hypertension (Primary Dx) Social History Tobacco Use Types Packs/Day Years Used Date Smoking Tobacco: Never Assessed Comments Unknown Sex and Gender Information Value Date Recorded Sex Assigned at Not on file 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
--- OUTSIDE RECORDS SUMMARY | 2025-10-07 12:29 | XMS_ITS | Clinical Summary ---
Author Organization [facility] Address [address] [place] [address] Phone Care Team Providers Care Faculty Member Name Role Phone Unavailable Primary Care Provider Unavailabl e Allergies No known active allergies Medications spironolactone (ALDACTONE) 100 mg Oral tablet Take 100 mg by mouth daily. Active montelukast (SINGULAIR) 10 mg Oral tablet Take 10 mg by mouth daily after breakfast. Active lisinopril (PRINIVIL) 20 mg Oral tablet Take 20 mg by mouth daily. Active cyclobenzaprine (FLEXERIL) 10 mg Oral tablet Take 10 mg by mouth 3 times daily as needed. Active traMADol (ULTRAM) 50 mg Oral tablet Take 50 mg by mouth every 6 hours as needed. Active HYDROcodone-acet aminophen (NORCO) 5-325 mg Oral tablet Take 1 Tab by mouth every 4 hours as needed for Pain. 12 Tab None 02/10/2012 Active dimethyl fumarate (TECFIDERA) 240 mg Oral CpDR Take by mouth 2 times daily. Active fexofenadine (CITLALLI) 180 mg Oral tablet Take 180 mg by mouth daily. Active SULFAMETHOXAZOLE /TRIMETHOPRIM (SEPTRA ORAL) Take by mouth. One every three days Active levETIRAcetam (KEPPRA XR) 500 mg Oral Tb24 Take by mouth. Active eletriptan (RELPAX) 20 mg Oral Tab Take 20 mg by mouth every 2 hours as needed. may repeat in 2 hours; max dose 80mg in 24 hours Active ERGOCALCIFEROL, VITAMIN D2, (VITAMIN D ORAL) Take by mouth. 50,000 IU twice weekly Active Active Problems Problem Noted Date Diagnosed Date Other specified disorders of breast 08/09/2013 Immunizations Immunization Administration Dates Next Due (ADACEL/BOOSTRIX)(10 YR UP) TDAP VACCINE, 0.5ML, IM 02/10/2012 (TDVAX)(7 YRS UP) TETANUS AN D DIPHTHERIA TOXOIDS, ADSORBED (2 LF OF TETANUS TOXOID AND 2 LF OF DIPHTHERIA TOXOID), 0.5ML (PF), IM 05/27/2000 Family History Medical History Relation Name Comments Hypertension Father Hypertension Mother Kidney Disease Mother Relation Name Status Comments Father Mother Social History Tobacco Use Types Packs/Day Years Used Date Smoking Tobacco: Never Alcohol Use Standard Drinks/Week Comments Yes 0 (1 standard drink = 0.6 oz pur e alcohol) socially Comments No Sex and Gender Information Value Date Recorded Sex Assigned at Not on file 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 Gender Identity Not on file Sexual Orientation Not on file Occupation Industry Job Start Date Job End Date Not on file Not on file Not on file Not on file Last Filed Vital Signs Vital Sign Reading Time Taken Comments Blood Pressure 100/68 08/09/2013 12:47 PM CDT Pulse 91 08/09/2013 12:47 PM CDT Temperature 37.3 C (99.2 F) 02/10/2012 3:25 PM CDT Respiratory Rate - - Oxygen Saturation 100% 02/10/2012 5:00 PM CDT Inhaled Oxygen Concentration - - Weight 78.5 kg (173 lb) 08/09/2013 12:47 PM CDT Height 162.6 cm (5' 4 ) 08/09/2013 12:47 PM CDT Body Mass Index 29.7 08/09/2013 12:47 PM CDT Plan of Treatment Health Maintenance Due Date Last Done Comments HEPATITIS B VACCINES (1 of 3 - 19+ 3-dose series) 1990 HPV/Cotest (21-29) 1992 CERVICAL CANCER SCREENING 2001 HPV/Cotest (30-65) 2001 PAP SMEAR 2001 BREAST CANCER SCREENING 2011 COLORECTAL SCREENING 2016 Colorectal Cancer Screening 2016 FIT-DNA Q 3 years 2016 FIT/FOBT Q 1 year 2016 Flex Sig/CT Colonography Q 5 years 2016 ZOSTER VACCINE (1 of 2) 2021 DTAP/TDAP/TD VACCINES (2 - Td or Tdap) 02/09/2022, 05/27/2000 INFLUENZA VACCINE (#1) 2025
--- OUTSIDE RECORDS SUMMARY | 2025-10-07 12:29 | XMS_ITS | Encounter Summary ---
Author Organization [facility] Address [address] [place] [address] Care Team Providers Care Certified Marine Mechanic Name Role Phone Unavailable Primary Care Provider Unavailabl e Encounter Details Date Type Department Care Team (Late st Contact Info) Description 09/29/2005 Outpatient Historical [facility] Neno Swanson MD [address] [place] [id number] Social History Tobacco Use Types Packs/Day Years Used Date Smoking Tobacco: Never Assessed Comments Unknown Sex and Gender Information Value Date Recorded Sex Assigned at Not on file 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
--- OUTSIDE RECORDS SUMMARY | 2025-10-07 12:29 | XMS_ITS | Encounter Summary ---
Author Organization [facility] Address [address] [place] [address] Care Team Providers Care Hide Worker Name Role Phone Unavailable Primary Care Provider Unavailabl e Encounter Details Date Type Department Care Team (Latest Contact Info) Description 06/29/1998 Outpatient Historical [facility] [address] [place] [address] Kun Alarcon MD [address] [address] [place], [place] [id number] Benign hypertension (Primary Dx); Allergic rhinitis, cause unspecified; Other acne Social History Tobacco Use Types Packs/Day Years Used Date Smoking Tobacco: Never Assessed Comments Unknown Sex and Gender Information Value Date Recorded Sex Assigned at Not on file 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
--- OUTSIDE RECORDS SUMMARY | 2025-10-07 12:29 | XMS_ITS | Encounter Summary ---
Author Organization [facility] Address [address] [place] [address] Care Team Providers Care Loan Services Professional Name Role Phone Unavailable Primary Care Provider Unavailabl e Encounter Details Date Type Department Care Team (Latest Contact Info) Description 12/14/2000 Outpatient Historical [facility] Medicine [place] [address] [facility] [address] [place] [address] Wilfredo Hall MD [address] [phone] Acute sinusitis, unspecified (Primary Dx) Social History Tobacco Use Types Packs/Day Years Used Date Smoking Tobacco: Never Assessed Comments Unknown Sex and Gender Information Value Date Recorded Sex Assigned at Not on file Legal Sex Female 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
--- OUTSIDE RECORDS SUMMARY | 2025-10-07 12:29 | XMS_ITS | Encounter Summary ---
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 [address] 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
--- OUTSIDE RECORDS SUMMARY | 2025-10-07 12:29 | XMS_ITS | Encounter Summary ---
Author Organization [facility] Address [address] [place] [address] Care Team Providers Care Darkroom Worker Name Role Phone Unavailable Primary Care Provider Unavailabl e Encounter Details Date Type Department Care Team (Latest Contact Info) Description 05/27/2000 Outpatient Historical [facility] Medicine [address] [phone] Darrius Torres, DO NO ADDRESS ON FILE Need for prophylactic vaccination with tetanus-diphtheria (Td) (Primary Dx) Social History Tobacco Use Types Packs/Day Years Used Date Smoking Tobacco: Never Assessed Comments Unknown Sex and Gender Information Value Date Recorded Sex Assigned at Not on file 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
[2025-10-07 12:30] VITALS: BP 138/97; PULSE 69; RESP 16; TEMP 36.8; O2SAT 98; BMI 31.4
--- NOTE | 2025-10-07 13:02 | CTR_ITS ---
PROCEDURE INFORMATION: Exam: CT Head Without Contrast Exam date and time: 10/07/2025 1:13 PM Age: 55 years old Clinical indication: Injury or Trauma; Fall; Blunt Trauma (Contusions or hematomas); Additional Info: laceration, injury TECHNIQUE: Imaging protocol: Computed tomography of the head without contrast. Radiation optimization: All CT scans at this facility use at least one of these dose optimization techniques: automated exposure control; mA and/or kV adjustment per patient size (includes targeted exams where dose is matched to clinical indication); or iterative reconstruction. COMPARISON: 1. CT head wo con* [id number] 02/04/2024 8:[address] head wo con* [id number] 09/08/2022 5:01 PM RADIATION DOSE METRICS: Total DLP (mGy-cm): 1048.45 FINDINGS: Brain: There is no mass effect or midline shift. No acute intracranial hemorrhage identified. No abnormal extra-axial fluid collections are appreciated. Cortical sulci are enlarged. Bilateral areas of low density are noted in the periventricular deep white matter and/or basal ganglia. The insular ribbon appears intact. Hughes-white matter differentiation elsewhere is normal. Cerebral ventricles: Ventricles are enlarged. Paranasal sinuses: No paranasal sinus disease. Mastoid air cells: No mastoid or middle ear fluid. Bones: No fractures are identified. Soft tissues: Unremarkable. Vasculature: There is no evidence of hyperdense MCA. CT/CT head wo con* [id number] IMPRESSION: 1. No acute intracranial bleed. 2. Old small vessel ischemic disease. 3. Atrophic and/or age-related volume loss. 4. No change compared with prior study.
[2025-10-07] MEDS: tetanus-dipt-pertussis 0.5 mL SDV IM (13:09)
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
[2025-10-07] MEDS: lidocaine-epi 1% 20 mL INJ INJECTION (13:56)
[2025-10-07 14:03] VITALS: BP 128/91; PULSE 51; O2SAT 99
== END 2025-10-07 14:04 | disposition home or self-care (01) ==
PROVIDERS: Emergency Provider Physician Assistant; PCP Internal Medicine
DX: S01.01XA Laceration without foreign body of scalp, initial encounter (principal); Z79.82 Long term (current) use of aspirin; I12.9 Hypertensive chronic kidney disease with stage 1 through stage 4 chronic kidney disease, or unspecified chronic kidney disease; N18.9 Chronic kidney disease, unspecified; W01.0XXA Fall on same level from slipping, tripping and stumbling without subsequent striking against object, initial encounter
CPT/HCPCS: 12002; 70450; 90471; 90715; 99284; J9999